=== PATIENT | male | born 1955 | race Caucasian/White ===

== ENCOUNTER 2025-06-20 17:14 | Inpatient (IN) ==
[2025-06-20 17:47] LABS: Hematocrit (blood only) 42.8 % (42.0-52.0); Hemoglobin 14.8 g/dL (14.0-18.0); Immature Granulocytes # (auto) 0.04 K/uL (0.01-0.20); Immature Granulocytes % (auto) 0.3 %; Mean Corpuscular Hemoglobin 30.5 pg (25.0-34.0); Mean Corpuscular Volume 88.2 fL (80.0-100.0); Platelet Count 182 K/uL (130-400); RDW Standard Deviation 44.5 fL (36.4-46.3); Red Blood Count 4.85 M/uL (4.70-6.10); White Blood Count 12.63 K/ul (4.8-10.8)
[2025-06-20 18:05] LABS: Alanine Aminotransferase 14.0 U/L (7-52); Albumin Globulin Ratio 1.6 (0.9-2); Albumin Level 4.3 gm/dl (3.4-5.0); Alkaline Phosphatase 91.0 U/L (34-104); Anion Gap 8.0 (3-11); Bilirubin,Total 0.8 mg/dl (0.2-1.0); Blood Urea Nitrogen 21.0 mg/dl (6-23); Calcium 9.3 mg/dl (8.6-10.3); Carbon Dioxide 25.0 mmol/L (21-32); Chloride 105.0 mmol/L (98-107); Creatinine Clr Calc Pharmacy 48.1 ml/min; Globulin 2.7 gm/dl (2.5-4.0); Glucose 138.0 mg/dl (70-99(Fasting)); Potassium 3.9 mmol/L (3.5-5.1); Sodium 138.0 mmol/L (136-145); Total Protein 7.0 gm/dl (6.0-8.3)
[2025-06-20 18:24] LABS: INR 1.0 (0.9-1.1); Partial Thromboplastin Time 30 Seconds (21-31); Prothrombin Time 10.5 Seconds (9.0-12.0)
--- NOTE | 2025-06-20 18:56 | Emergency Department Note ---
History of Present Illness General Chief complaint: Cardiac Assessment Stated complaint: CARDIAC ASSESSMENT Time Seen by Provider: 06/20/25 18:34 Source: patient Mode of arrival: ambulatory Limitations: no limitations History of Present Illness Maximum Pain Intensity: 2 Patient is a 69-year-old male with history of alcohol use disorder who presents for chest pain. He noticed some mild discomfort 3 days ago which resolved on its own. 2 nights ago however he started to develop more severe pain and discomfort that radiate across his entire chest into his arms. Lasted about 20 minutes and resolved on its own. He did feel anxious and short of breath when it occurred. No associated lightheadedness, dizziness, palp palpitations, nausea, vomiting. He has had indigestion in the past however this was more severe. He has been taking baby aspirin every day over the past 3 days. He denies any drug use. Last drink was at 19 9. He is an active smoker. Also has a history of kidney problems and diabetes. Allergies Allergy/AdvReac Type Severity Reaction Status Date / Time No Known Allergies Allergy Unverified 06/20/25 18:48 Past Med/Surg History Problem List (Updated 06/20/25 @ 19:27 by Lloyd Newton MD) Acute non-ST elevation myocardial infarction (NSTEMI) (Acute) Social History Smoking Status: Current every day smoker Tobacco Type: Cigarettes Preferred Language: Nepalese Feels Safe at Home: Yes Review of Systems Review of systems negative outside of positive findings mentioned in HPI. Physical Exam Vital Signs Vital Signs - 24 hr 06/20/25 17:16 06/20/25 18:36 06/20/25 18:49 Temperature 36.8 C Temperature Source Temporal Artery Scan Pulse Rate 69 63 58 L Respiratory Rate 18 16 Respiratory Effort / Characteristics Non-Labored Spontaneous Respiratory Depth Normal Blood Pressure 153/83 H Blood Pressure Mean 106 Pulse Oximetry 100 98 Oxygen Delivery Method Room Air Room Air Sepsis Recent Fever Within 48 Hours No Sepsis New/Unexplained Change in Mental Status No Sepsis Action Taken by Nursing No Action Required See below Constitutional WD/WN, vitals as above Respiratory normal respiratory effort, lungs clear to auscultation Cardiovascular RRR, no murmur, no edema Extremities: no calf tenderness, no pedal edema and no edema Gastrointestinal (Abdomen) normal bowel sounds, soft, nontender, no hepatosplenomegaly Course Administered Medications Discontinued Medications Aspirin (Aspirin Chew 324 Mg) 324 mg PO NOW STA Stop: 06/20/25 18:52 Last Admin: 06/20/25 19:24 Dose: 324 mg Documented By: taras Medical Decision Making Differential Diagnosis DDx includes but not limited to: NSTEMI, unstable angina, demand ischemia, myocarditis, pericarditis, cardiomyopathy, coronary artery spasm, GERD, esophageal spasm Medical Records Attestation: I reviewed the patient's medical records. Home Medications Current Medication List: was personally reviewed by me Laboratory Data Attestation: I reviewed the patient's lab results. 06/20/25 17:33 06/20/25 17:33 Lab Results 06/20/25 Range/Units 17:33 WBC 12.63 H (4.8-10.8) K/ul RBC 4.85 (4.70-6.10) M/uL Hgb 14.8 (14.0-18.0) g/dL Hct 42.8 (42.0-52.0) % MCV 88.2 (80.0-100.0) fL MCH 30.5 (25.0-34.0) pg MCHC 34.6 (32.0-36.0) g/dL RDW Std Deviation 44.5 (36.4-46.3) fL RDW Coeff of Misha 13.9 (11.5-14.5) % Plt Count 182 (130-400) K/uL MPV 9.1 L (9.4-12.4) fL Immature Gran % (Auto) 0.3 % Neut % (Auto) 77.6 % Lymph % (Auto) 13.2 % [place] % (Auto) 6.3 % Eos % (Auto) 2.0 % Baso % (Auto) 0.6 % Neut # (Auto) 9.79 H (1.40-6.50) K/uL Lymph # (Auto) 1.67 (1.20-3.40) K/uL [place] # (Auto) 0.80 H (0.11-0.59) K/uL Eos # (Auto) 0.25 (0.00-0.50) K/uL Baso # (Auto) 0.08 (0.00-0.20) K/uL Immature Gran # (Auto) 0.04 (0.01-0.20) K/uL PT 10.5 (9.0-12.0) Seconds INR 1.0 (0.9-1.1) APTT 30 (21-31) Seconds PTT Ratio 1.1 Sodium 138 (136-145) mmol/L Potassium 3.9 (3.5-5.1) mmol/L Chloride 105 (98-107) mmol/L Carbon Dioxide 25 (21-32) mmol/L Anion Gap 8 (3-11) BUN 21 (6-23) mg/dl Creatinine 1.59 H (0.6-1.4) mg/dl Est Cr Clr Drug Dosing 48.1 ml/min eGFR 46.70 BUN/Creatinine Ratio 13.2 (10-20) Glucose 138 H (70-99(Fasting)) mg/dl Calcium 9.3 (8.6-10.3) mg/dl Total Bilirubin 0.8 (0.2-1.0) mg/dl AST 19 (13-39) U/L ALT 14 (7-52) U/L Alkaline Phosphatase 91 (34-104) U/L Troponin I High Sens 339.9 H* (0-20) pg/ml Total Protein 7.0 (6.0-8.3) gm/dl Albumin 4.3 (3.4-5.0) gm/dl Globulin 2.7 (2.5-4.0) gm/dl Albumin/Globulin Ratio 1.6 (0.9-2) Imaging Data Attestation: I personally reviewed and interpreted this imaging study as follows: My Impression: No acute cardiopulmonary process noted ECG Data Attestation: I personally reviewed and interpreted this ECG as follows: Indication: + chest pain Rate (beats per minute): 62 Rhythm: + sinus rhythm ECG Intervals/blocks: + Normal QRS, + Normal QT and + Normal MI ECG ST segments: + T-wave inversions (III) ECG Findings: + LVH Comparison ECG Date: no prior available Blood Pressure Blood Pressure Findings: Elevated blood pressure Blood Pressure Disposition: elevated BP felt to be situational MDM Narrative Patient is a 69-year-old male who presents today for chest pain. Chest pain occurred 2 days prior and he is asymptomatic here in the ED. Description of chest pain was concerning for ACS. EKG reviewed and no evidence of STEMI or significant ST abnormalities noted. Initial troponin of 339. Clinical picture concerning for NSTEMI. Heparin initiated here in the ED. 324 of aspirin as well as atorvastatin was given. Will admit to hospitalist service for further management of NSTEMI. Stable for admission to telemetry bed. Low concern for aortic dissection or PE Authorized and Performed by: Dr. Newton Total critical care time: Approximately 35 CC diagnosis: NSTEMI Due to a high probability of clinically significant, life threatening deterioration, the patient required my highest level of preparedness to intervene emergently and I personally spent this critical care time directly and personally managing the patient. This critical care time included obtaining a history; examining the patient; pulse oximetry; ordering and review of studies; arranging urgent treatment with development of a management plan; evaluation of patient's response to treatment; frequent reassessment; and, discussions with other providers. This critical care time was performed to assess and manage the high probability of imminent, life-threatening deterioration that could result in multi-organ failure. It was exclusive of separately billable procedures and treating other patients and teaching time. Please see MDM section and the rest of the note for further information on patient assessment and treatment.. Impression & Plan Acute non-ST elevation myocardial infarction (NSTEMI) Discharge Plan Visit Data Chief Complaint: Cardiac Assessment Stated Complaint: CARDIAC ASSESSMENT ED Provider: Lloyd Newton Discharge Problem: Acute non-ST elevation myocardial infarction (NSTEMI) Patient Disposition: Admitted As Inpatient Condition: Good Forms Stand Alone Forms: My [facility] Referrals Referrals: PCP,NO [Physician] -
[2025-06-20] MEDS: ASPIRIN CHEW 324 MG PO STA (19:24)
[2025-06-20] MEDS: HEPARIN SOD (PORCINE) 1000 UNIT/ML IV ONE (19:32)
[2025-06-20] MEDS: HEPARIN 25000 UNIT/500 ML D5W 25,000 UNITS/500 ML BAG IV SCH (19:33)
--- NOTE | 2025-06-20 19:42 | XRay Report ---
Single frontal view of the chest No comparison Impression No acute pulmonary pathology Electronically signed by Jaime Deras 06-20-2025 7:42 PM
[2025-06-20] MEDS: Heparin IV Adult Wt-Based Standard w/ INITIAL Bolus Protocol IV STA (20:24)
[2025-06-20] MEDS: ATORVASTATIN 40 MG TAB PO SCH (20:46)
--- NOTE | 2025-06-20 20:50 | History & Physical Report ---
Date of Service June 20, 2025 Assessment & Plan (1) Acute non-ST elevation myocardial infarction (NSTEMI): Plan: 69-year-old male unassigned patient who goes to [facility] with past medical history significant for hypertension, hyperlipidemia, BPH, chronic headaches, depression and anxiety and ongoing tobacco abuse presents with chest pain. Couple of nights ago patient experienced chest tightness radiating to both arms initially and later the pain was located in the middle of the chest which lasted for about 20 minutes. When he checked his blood pressure was very high at that time. He took aspirin and took his blood pressure medication and also took a lot of Pepto-Bismol. Pain subsided over 20 minutes. Since then he did not had any more pains. The day before chest pain he felt some pain in his back with stiffness. When he climbs steps he feels short of breath. Says he has chronic headaches. During the episode no profuse sweating. He felt dizzy during the episode. No nausea. Has chronic cough from smoking. Chronic sinus drainage. Has chronic left ear discomfort. Chronic abdominal discomfort. He has alternating diarrhea and constipation. Last couple of days having black stools probably from his Pepto-Bismol. Micturating okay. Denies any rash. Currently no chest pain. Currently resting comfortably and hemodynamically stable.States cannot ambulate much because of chronic back pain radiating down his left leg Non-ST elevated [place] Had chest pain couple of nights ago Currently asymptomatic EKG no acute findings Initial troponin 339 and repeat 353 Got aspirin and started on IV heparin in the ER Will continue IV heparin, aspirin 81 mg daily, increase Lipitor to 80 mg Close monitoring telemetry N.p.o. Serial cardiac enzymes and echocardiogram Consult cardiology for further recommendations History of hypertension On propranolol Medication adjustments as per cardiology Hyperlipidemia Increased Lipitor to 80 mg daily BPH On Flomax Depression anxiety On venlafaxine xanax prn Chronic kidney disease Patient does not know his baseline creatinine Creatinine 1.5 today Can get records from [facility] DM recently started on Jardiance as per patient will follow hba1c levels ISS for now Blck stool possibly from Pepto Bismol hb ok will check stool for Hemoccult Chronic back pain needs followup DVT prophylaxis IV heparin Disposition Telemetry Full code. History of Present Illness Chief Complaint: Chest pain Primary Care Provider: MAYELA Christopher 69-year-old male unassigned patient who goes to [facility] with past medical history significant for hypertension, hyperlipidemia, BPH, chronic headaches, depression and anxiety and ongoing tobacco abuse presents with chest pain. Couple of nights ago patient experienced chest tightness radiating to both arms initially and later the pain was located in the middle of the chest which lasted for about 20 minutes. When he checked his blood pressure was very high at that time. He took aspirin and took his blood pressure medication and also took a lot of Pepto-Bismol. Pain subsided over 20 minutes. Since then he did not had any more pains. The day before chest pain he felt some pain in his back with stiffness. When he climbs steps he feels short of breath. Says he has chronic headaches. During the episode no profuse sweating. He felt dizzy during the episode. No nausea. Has chronic cough from smoking. Chronic sinus drainage. Has chronic left ear discomfort. Chronic abdominal discomfort. He has alternating diarrhea and constipation. Last couple of days having black stools probably from his Pepto-Bismol. Micturating okay. Denies any rash. Currently no chest pain. Currently resting comfortably and hemodynamically stable.States cannot ambulate much because of chronic back pain radiating down his left leg Past medical history. As mentioned above. Past surgical history. Dental surgery. Tonsillectomy. Social history. Smokes 1 pack of cigarettes daily for last 50 years. Quit drinking alcohol in 1988. Family history. Patient states he is adopted. His father in his 30s. No other significant history in the family as per patient. Allergies Allergy/AdvReac Type Severity Reaction Status Date / Time No Known Allergies Allergy Unverified 06/20/25 18:48 Home Medications Medication Instructions Recorded Confirmed Type alprazolam 0.25 mg tablet (Xanax) 0.25 mg PO TID PRN Anxiety 06/20/25 06/20/25 History atorvastatin 40 mg tablet 20 mg PO DAILY 06/20/25 06/20/25 History cetirizine 10 mg tablet 10 mg PO DAILY 06/20/25 06/20/25 History magnesium oxide 420 mg tablet 420 mg PO DAILY 06/20/25 06/20/25 History propranolol 120 mg capsule,24 120 mg PO DAILY 06/20/25 06/20/25 History hr,extended release tamsulosin 0.4 mg capsule 0.4 mg PO DAILY 06/20/25 06/20/25 History topiramate 50 mg tablet 50 mg PO DAILY PRN Headache 06/20/25 06/20/25 History venlafaxine 150 mg 150 mg PO DAILY 06/20/25 06/20/25 History capsule,extended release 24 hr Past Med/Surg History Problem List (Updated 06/20/25 @ 19:27 by Lloyd Newton MD) Acute non-ST elevation myocardial infarction (NSTEMI) (Acute) Social History Smoking Status: Current every day smoker Tobacco Type: Cigarettes Cigarettes Per Day: 20-30; Second Hand Exposure: No; Do You Dip or Chew Tobacco: No; Tobacco Cessation Education Requested by Patient: No Hx Alcohol Use: No Hx Substance Use: No Preferred Language: Martiniquais Communication Ability: Effective [employer] Required: No Beliefs That Will Affect Care: None Current Living Situation: Alone Current Living Situation Comment: alone Other Information That Helps Us Care for You: No Feels Safe at Home: Yes Safety Concerns: Feels Safe At This Time Assistive Devices: Denture - Upper, Denture - Lower and Glasses Review of Systems Review of Systems: All systems reviewed & are unremarkable except as noted in HPI & below Physical Exam Physical Exam: General- Not in acute distress Head- atraumatic Eyes- PERRL. ENT- oropharynx clear Neck- supple, no JVD. Lungs- clear to auscultation no wheezing or crackles Heart- regular rhythm; no murmur, no gallop. Abdomen- normal bowel sounds, soft, nontender, no distension. Extremities- no pretibial edema, no erythema seen Neuro- alert, oriented x 3; PERRL, no facial palsy; no dysarthria; moves extremities Results & Data Results & Data Vital Signs (Past 12 Hours) Vital Signs Temp Pulse Pulse Resp BP BP Pulse Ox 06/20/25 20:00 60 20 132/91 98 06/20/25 18:49 58 L 16 98 06/20/25 18:36 63 06/20/25 18:00 60 16 173/99 H 99 06/20/25 17:16 36.8 C 69 18 153/83 H 100 O2 Del Method 06/20/25 20:00 Room Air 06/20/25 18:49 Room Air 06/20/25 18:36 06/20/25 18:00 Room Air 06/20/25 17:16 Room Air Diagnostic Findings Laboratory Results WBC 12.63 K/ul (4.8-10.8) H 06/20/25 17:33 RBC 4.85 M/uL (4.70-6.10) 06/20/25 17:33 Hgb 14.8 g/dL (14.0-18.0) 06/20/25 17:33 Hct 42.8 % (42.0-52.0) 06/20/25 17:33 MCV 88.2 fL (80.0-100.0) 06/20/25 17: MCH 30.5 pg (25.0-34.0) 06/20/25 17: MCHC 34.6 g/dL (32.0-36.0) 06/20/25 17:33 RDW Std Deviation 44.5 fL (36.4-46.3) 06/20/25 17: RDW Coeff of Misha 13.9 % (11.5-14.5) 06/20/25 17: Plt Count 182 K/uL (130-400) 06/20/25 17: MPV 9.1 fL (9.4-12.4) L 06/20/25 17:33 Immature Gran % (Auto) 0.3 % 06/20/25 17: Neut % (Auto) 77.6 % 06/20/25 17:33 Lymph % (Auto) 13.2 % 06/20/25 17:33 [place] % (Auto) 6.3 % 06/20/25 17:33 Eos % (Auto) 2.0 % 06/20/25 17:33 Baso % (Auto) 0.6 % 06/20/25 17:33 Neut # (Auto) 9.79 K/uL (1.40-6.50) H 06/20/25 17:33 Lymph # (Auto) 1.67 K/uL (1.20-3.40) 06/20/25 17:33 [place]omew # (Auto) 0.80 K/uL (0.11-0.59) H 06/20/25 17:33 Eos # (Auto) 0.25 K/uL (0.00-0.50) 06/20/25 17: Baso # (Auto) 0.08 K/uL (0.00-0.20) 06/20/25 17:33 Immature Gran # (Auto) 0.04 K/uL (0.01-0.20) 06/20/25 17:33 PT 10.5 Seconds (9.0-12.0) 06/20/25 17:33 INR 1.0 (0.9-1.1) 06/20/25 17:33 APTT 30 Seconds (21-31) 06/20/25 17:33 PTT Ratio 1.1 06/20/25 17:33 Sodium 138 mmol/L (136-145) 06/20/25 17:33 Potassium 3.9 mmol/L (3.5-5.1) 06/20/25 17:33 Chloride 105 mmol/L (98-107) 06/20/25 17:33 Carbon Dioxide 25 mmol/L (21-32) 06/20/25 17:33 Anion Gap 8 (3-11) 06/20/25 17:33 BUN 21 mg/dl (6-23) 06/20/25 17:33 Creatinine 1.59 mg/dl (0.6-1.4) H 06/20/25 17:33 Est Cr Clr Drug Dosing 48.1 ml/min 06/20/25 17:33 eGFR 46.70 06/20/25 17:33 BUN/Creatinine Ratio 13.2 (10-20) 06/20/25 17:33 Glucose 138 mg/dl (70-99(Fasting)) H 06/20/25 17:33 Calcium 9.3 mg/dl (8.6-10.3) 06/20/25 17:33 Total Bilirubin 0.8 mg/dl (0.2-1.0) 06/20/25 17:33 AST 19 U/L (13-39) 06/20/25 17:33 ALT 14 U/L (7-52) 06/20/25 17:33 Alkaline Phosphatase 91 U/L (34-104) 06/20/25 17:33 Troponin I High Sens 353.0 pg/ml (0-20) H* 06/20/25 19:26 Total Protein 7.0 gm/dl (6.0-8.3) 06/20/25 17:33 Albumin 4.3 gm/dl (3.4-5.0) 06/20/25 17:33 Globulin 2.7 gm/dl (2.5-4.0) 06/20/25 17:33 Albumin/Globulin Ratio 1.6 (0.9-2) 06/20/25 17:33 Impressions Chest X-Ray 06/20/25 17:25 Single frontal view of the chest No comparison Impression No acute pulmonary pathology Electronically signed by Jaime Deras 06-20-2025 7:42 PM ECG Additional Comments: ECG. Normal sinus rhythm rate of 62. Minimal criteria for LVH. QTc 442 Code Status & VTE Plan VTE Prophylaxis Plan VTE Prophylaxis will be ordered: Yes
[2025-06-20] MEDS ORDERED: INFLUENZA VACC TS2025-26(65y+)/PF (IIV3) 0.5mL Syr IM ONE (22:09)
[2025-06-20] MEDS ORDERED: GLUCAGON FOR INJ 1 MG VIAL SQ PRN (22:21)
[2025-06-20] MEDS ORDERED: GLUCOSE 40% GEL 15 GM TUBE PO PRN (22:21)
[2025-06-20] MEDS ORDERED: POLYETHYLENE (MIRALAX) 17 GM PACK PO PRN (22:21)
[2025-06-20] MEDS ORDERED: CARBOHYDRATES FOR HYPOGLYCEMIA PO PRN (22:21)
[2025-06-20] MEDS ORDERED: MoRPHine SULFATE 2 MG/ML CARP IV PRN (22:21)
[2025-06-20] MEDS ORDERED: GLUCOSE 10 TAB/TUBE PO PRN (22:21)
[2025-06-20] MEDS ORDERED: DEXTROSE 50% 50 ML SYRINGE IV PRN (22:21)
[2025-06-20] MEDS: TOPIRAMATE 50 MG TAB PO PRN (23:56)
[2025-06-21] MEDS: INSULIN ASPART PER UNIT CHARGE SC SCH ×2 (00:25→17:56)
[2025-06-21 02:31] LABS: Hematocrit (blood only) 38.9 % (42.0-52.0); Hemoglobin 13.8 g/dL (14.0-18.0); Immature Granulocytes # (auto) 0.03 K/uL (0.01-0.20); Immature Granulocytes % (auto) 0.3 %; Mean Corpuscular Hemoglobin 30.8 pg (25.0-34.0); Mean Corpuscular Volume 86.8 fL (80.0-100.0); Platelet Count 170 K/uL (130-400); RDW Standard Deviation 44.1 fL (36.4-46.3); Red Blood Count 4.48 M/uL (4.70-6.10); White Blood Count 10.33 K/ul (4.8-10.8)
[2025-06-21 02:46] LABS: Anion Gap 8.0 (3-11); Blood Urea Nitrogen 20.0 mg/dl (6-23); Calcium 8.6 mg/dl (8.6-10.3); Carbon Dioxide 23.0 mmol/L (21-32); Chloride 108.0 mmol/L (98-107); Creatinine Clr Calc Pharmacy 55.0 ml/min; Glucose 110.0 mg/dl (70-99(Fasting)); Magnesium 2.4 mg/dl (1.7-2.4); Potassium 3.4 mmol/L (3.5-5.1); Sodium 139.0 mmol/L (136-145)
[2025-06-21 03:03] LABS: ANTI-Xa, UFH(UnfractionatedHep 1.10 IU/ml (0.3-0.7)
[2025-06-21 03:29] LABS: Cholesterol 94.0 mg/dl (0-200); HDL Cholesterol 29.0 mg/dl; Triglycerides 65.0 mg/dl (0-150)
[2025-06-21 06:02] LABS: ANTI-Xa, UFH(UnfractionatedHep 0.53 IU/ml (0.3-0.7)
[2025-06-21] MEDS: ASPIRIN 81 MG ECTAB PO SCH (07:49)
[2025-06-21] MEDS: MAGNESIUM OXIDE 400 MG TAB PO SCH (07:49)
[2025-06-21] MEDS: CETIRIZINE HCL 10 MG TABLET PO SCH (07:50)
[2025-06-21] MEDS: VENLAFAXINE HCL XR 150 MG CAPXR PO SCH (07:50)
[2025-06-21] MEDS: TAMSULOSIN HCL 0.4 MG CAP PO SCH (07:50)
[2025-06-21] MEDS: PROPRANOLOL HCL 60 MG LA CAP PO SCH (07:50)
[2025-06-21 08:36] LABS: Hemoglobin A1C 6.2 % (4.5-5.6)
[2025-06-21] MEDS: POTASSIUM CHLORIDE CRTAB 20 MEQ TABCR PO STA (08:42)
[2025-06-21] MEDS ORDERED: TOPIRAMATE 50 MG TAB PO SCH (09:00)
--- NOTE | 2025-06-21 09:06 | Cardiology Consultation ---
Date of Consultation June 21, 2025 Assessment & Plan (1) Acute non-ST elevation myocardial infarction (NSTEMI): (2) Chest pain: (3) Hypertension: (4) Dyslipidemia: Plan Assessment: 69 year old male with PMHx significant for HTN, HLD and family history of premature CAD that presented to the ER with complaints of chest pain radiating to bilateral arms and back for several hours. Little to no relief with ASA, current anti-hypertensives and Pepto-bismol. EKG with no acute ST elevation, but T wave inversion in inferior leads. Troponin with modest elevation, peaked and now trending down. Cardiology consulted for further evaluation. Plan: 1. NSTEMI 2. Chest pain 3. HTN 4. Dyslipidemia -Patient now chest pain free, currently on heparin gtt -Blood pressure controlled -Troponin with modest elevation, peaked and now trending down -Telemetry with no acute events overnight. -patient does not follow with a mailing machine assistant and denies any prior heart events. He does carry multiple risk factors including HTN, HLD, prior alcholol and tobacco use, family history of biological father in his 30's suspected s/t to coronary disease and recent symptoms as outlined in HPI -Obtain resting echocardiogram to assess overall structure and function. -Allow for patient to have a cardiac diet. -Continue to monitor closely on telemetry. -Continue Heparin gtt, Atorvastatin, ASA 81mg, Propranolol as per current regimen. -Pending echocardiogram results will further discuss case with Dr. Gooden for consideration of further ischemic evaluation. Case has been discussed with Dr. Gooden. Further recommendations regarding plan of care as per his assessment. I spent a total of 50 minutes on the date of service in preparation, delivery, documentation of the care provided to the patient excluding any time spent in the performance of separately billed services. MAYELA Brock [facility] Cardiology [facility] Supervising Physician Co-Signing Physician Notes I have reviewed the advanced practitioner's documentation on the date of service referenced in note, and I agree with, and take responsibility for the plan of care. I spent a total of [30] minutes coordinating, documenting, and providing care for this patient excluding time spent in the performance of separately billed services or time spent by another provider. 69-year-old male with known history hypertension dyslipidemia and family history of premature coronary artery disease presents with chest pain elevated troponins peak of 453 Echocardiogram shows normal ejection fraction with mild hypokinesis of the inferior wall Patient had an episode of chest pain today afternoon. Repeat EKG at that time showed ST-T wave changes in inferior leads Chest pain has resolved now Will start Imdur for angina Plan for cardiac cath on Monday however if recurrent chest pain which is worsening or persistent might need to have earlier intervention before Monday History of Present Illness Reason for Consultation: NSTEMI Requesting Physician: [facility] hospitalist Attending Physician: Lesley Mariscal MD History of Present Illness HPI: Patient is a 69 year old male with PMHx significant for HTN, HLD, BPH, chronic headaches, depression/anxiety and tobacco use that presented to the ER with acute complaints of chest pain. Patient states that the chest pain started a few nights prior to presenting described as a tightness mid-sternal radiating into both arms and also into his back lasting about 20 minutes. He endorsed some associated dizziness with the episode. He checked his blood pressure which was "very high" at that time. He opted to take an ASA, his BP medication and some pepto-bismol. Patient states that over the course of the past months he has been having dyspnea with exertion such as climbing stairs, but no chest pain until this event. He did endorse some increasing GERD symptoms over the past several months especially when attempting to eat causing him to question if "maybe I have a hiatal hernia". Upon examination today he is resting comfortably in bed. Reports that his chest pain has subsided and no recurrence overnight. He is currently on a heparin gtt. EKG on admission NSR rate 62bpm. QTC 442ms High sensitivity troponin 339.9/353.0/415.4/360.4 Chest xray negative Review of telemetry shows sinus bradycardia/Sinus rhythm Rates 50-60's with occasional PVC's. Echocardiogram pending Allergies Allergy/AdvReac Type Severity Reaction Status Date / Time No Known Allergies Allergy Unverified 06/20/25 18:48 Home Medications Medication Instructions Recorded Confirmed Type alprazolam 0.25 mg tablet (Xanax) 0.25 mg PO TID PRN Anxiety 06/20/25 06/20/25 History atorvastatin 40 mg tablet 20 mg PO DAILY 06/20/25 06/20/25 History cetirizine 10 mg tablet 10 mg PO DAILY 06/20/25 06/20/25 History magnesium oxide 420 mg tablet 420 mg PO DAILY 06/20/25 06/20/25 History propranolol 120 mg capsule,24 120 mg PO DAILY 06/20/25 06/20/25 History hr,extended release tamsulosin 0.4 mg capsule 0.4 mg PO DAILY 06/20/25 06/20/25 History topiramate 50 mg tablet 50 mg PO BID Headache 06/20/25 06/21/25 History venlafaxine 150 mg 300 mg PO DAILY 06/20/25 06/21/25 History capsule,extended release 24 hr empagliflozin 25 mg tablet 12.5 mg PO DAILY 06/21/25 06/21/25 History fluticasone propionate 50 2 spray intranasal DAILY 06/21/25 06/21/25 History mcg/actuation nasal spray,suspension losartan 50 mg tablet 50 mg PO DAILY 06/21/25 06/21/25 History pantoprazole 40 mg tablet,delayed 40 mg PO DAILY 06/21/25 06/21/25 History release Patient History Social History Smoking Status: Current every day smoker Tobacco Type: Cigarettes Cigarettes Per Day: 20-30; Second Hand Exposure: No; Do You Dip or Chew Tobacco: No; Tobacco Cessation Education Requested by Patient: No Hx Alcohol Use: No Hx Substance Use: No Preferred Language: American Communication Ability: Effective Children'S Program Coordinator Required: No Beliefs That Will Affect Care: None Current Living Situation: Alone Current Living Situation Comment: alone Other Information That Helps Us Care for You: No Feels Safe at Home: Yes Safety Concerns: Feels Safe At This Time Assistive Devices: Denture - Upper, Denture - Lower and Glasses Review of Systems Review of Systems: All systems reviewed & are unremarkable except as noted in HPI & below Physical Exam Constitutional: well developed, well nourished and + ill appearing; no acute distress Neck: normal visual inspection and trachea midline Respiratory: normal respiratory effort, lungs clear to auscultation Cardiovascular: RRR, no murmur, no edema Heart Sounds: normal S1 and normal S2 Vessels: dorsalis pedis pulses present and radial pulses present; no JVD Extremities: no edema Skin: no rashes, warm and dry Psychiatric: A+Ox3, euthymic affect Results & Data Vital Signs (Past 12 Hours) Vital Signs Temp Pulse Pulse Resp BP BP Pulse Ox 06/21/25 07:42 36.7 C 57 L 18 144/83 H 95 06/21/25 05:00 53 L 06/21/25 03:25 36.4 C L 56 L 18 149/81 H 96 06/20/25 23:27 36.5 C 60 18 146/73 H 98 06/20/25 22:48 59 L 06/20/25 22:35 06/20/25 22:24 06/20/25 22:21 63 06/20/25 22:21 06/20/25 22:10 36.4 C L 61 18 151/92 H 98 06/20/25 21:42 58 L 20 158/71 H 98 O2 Del Method O2 Del Method 06/21/25 07:42 Room Air 06/21/25 05:00 06/21/25 03:25 Room Air 06/20/25 23:27 Room Air 06/20/25 22:48 06/20/25 22:35 Room Air 06/20/25 22:24 Room Air 06/20/25 22:21 06/20/25 22:21 Room Air 06/20/25 22:10 Room Air 06/20/25 21:42 Room Air Laboratory Results Cardiac Enzymes 06/20/25 06/20/25 06/21/25 Range/Units 17:33 19:26 01:57 AST 19 (13-39) U/L Troponin I High Sens 339.9 H* 353.0 H* 415.4 H* (0-20) pg/ml 06/21/25 Range/Units 11:47 AST (13-39) U/L Troponin I High Sens 360.4 H* (0-20) pg/ml Coagulation 06/20/25 Range/Units 17:33 PT 10.5 (9.0-12.0) Seconds APTT 30 (21-31) Seconds Lipids 06/21/25 Range/Units 01:57 Triglycerides 65 (0-150) mg/dl Cholesterol 94 (0-200) mg/dl HDL Cholesterol 29 mg/dl Cholesterol/HDL Ratio 3.2 (0-5) CBC 06/20/25 06/21/25 Range/Units 17:33 01:57 WBC 12.63 H 10.33 (4.8-10.8) K/ul RBC 4.85 4.48 L (4.70-6.10) M/uL Hgb 14.8 13.8 L (14.0-18.0) g/dL Hct 42.8 38.9 L (42.0-52.0) % Plt Count 182 170 (130-400) K/uL Neut # (Auto) 9.79 H 6.25 (1.40-6.50) K/uL Lymph # (Auto) 1.67 2.54 (1.20-3.40) K/uL Power # (Auto) 0.80 H 1.12 H (0.11-0.59) K/uL Eos # (Auto) 0.25 0.31 (0.00-0.50) K/uL Baso # (Auto) 0.08 0.08 (0.00-0.20) K/uL Comprehensive Metabolic Panel 06/20/25 06/21/25 Range/Units 17:33 01:57 Sodium 138 139 (136-145) mmol/L Potassium 3.9 3.4 L (3.5-5.1) mmol/L Chloride 105 108 H (98-107) mmol/L Carbon Dioxide 25 23 (21-32) mmol/L BUN 21 20 (6-23) mg/dl Creatinine 1.59 H 1.35 (0.6-1.4) mg/dl Glucose 138 H 110 H (70-99(Fasting)) mg/dl Calcium 9.3 8.6 (8.6-10.3) mg/dl AST 19 (13-39) U/L ALT 14 (7-52) U/L Alkaline Phosphatase 91 (34-104) U/L Total Protein 7.0 (6.0-8.3) gm/dl Albumin 4.3 (3.4-5.0) gm/dl Intake and Output 06/20/25 06/21/25 06/21/25 22:59 06:59 14:59 Intake Total 219.433 / 219.433 21.35 / 21.35 Balance 219.433 / 219.433 21.35 / 21.35 Intake: IV 219.433 / 219.433 21.35 / 21.35 Heparin 84014 Unit/500 ml D5w 219.433 / 219.433 21.35 / 21.35 25,000 units In 500 ml @ 1,450 UNITS/HR 29 mls/hr IV .[id number] JONEL Rx#:[id number] Oral 0 / 0 Other: # Unmeasured Voids 1 Weight 84 kg 84.2 kg Weight Measurement Method [facility] Care Time/CCT Total # of Minutes Spent Total Time Spent with Patient: Total time spent is greater than 50% in coordination of care (as documented) at patient's floor/unit and/or counseling patient: Coding Level of Care Code 80621 IN/OBS CONSULT LVL 5,80M Diagnoses Acute non-ST elevation myocardial infarction (NSTEMI) I21.4 Chest pain R07.9 Hypertension I10 Dyslipidemia E78.5 Time Spent (min) 50
--- NOTE | 2025-06-21 09:42 | Electrocardiogram Report ---
Test Reason : Blood Pressure : */* mmHG Vent. Rate : 62 BPM Atrial Rate : 62 BPM P-R Int : 160 ms QRS Dur : 84 ms QT Int : 436 ms P-R-T Axes : 13 29 13 degrees QTcB Int : 442 ms Normal sinus rhythm Minimal voltage criteria for LVH, may be normal variant Borderline ECG No previous ECGs available Confirmed by Juanjo Denney ([id number]) on 06/21/2025 9:42:01 AM Referred By: REFERRED SELF Confirmed By: Juanjo Denney
[2025-06-21 12:28] LABS: ANTI-Xa, UFH(UnfractionatedHep 0.40 IU/ml (0.3-0.7)
--- NOTE | 2025-06-21 12:32 | Hospitalist Progress Note ---
Date of Service June 21, 2025 Assessment & Plan (1) Acute non-ST elevation myocardial infarction (NSTEMI): Plan: 69-year-old man who goes to [facility] with past medical history significant for hypertension, hyperlipidemia, BPH, chronic headaches, depression and anxiety and ongoing tobacco abuse presents with chest pain started a few nights ago radiating to both arms initially and later the pain was located in the middle of the chest which lasted for about 20 minutes and elevated BP. Non-ST elevated OR Currently asymptomatic EKG noted TWI in III Initial troponin 339-> 353->415->360 Got aspirin and started on IV heparin in the ER Continue IV heparin, aspirin 81 mg daily, Continue Atorvastatin 80 mg TTE today noted EF 55-60%, mild hypokinesis of basal inferoseptal wall and inferior wall, mild MR Awaiting Certified Hearing Instrument Dispenser eval. Possible cardiac cath on Monday History of hypertension On propranolol Med list obtained from [place] showed patient was on losartan 50mg daily at home. Resumed Hyperlipidemia Atorvastatin was increased to 80 mg daily on admission BPH On Flomax Depression/anxiety Updated med list which showed he was on Venlafaxine 300mg daily, not 150mg xanax prn Discussed with RN to have psych liason see patient Possible Chronic kidney disease Patient does not know his baseline creatinine Cr of 1.59 on admission Cr is 1.35 today. Monitor DM Recently started on Jardiance as per patient. Holding for now as patient may need procedure HbA1c 6.2 ISS for now Chronic back pain DVT prophylaxis - IV heparin Full code. I spent a total of 55 minutes coordinating, documenting and providing care for this patient excluding time spent in performance of separately billed services Admission and Anticipated Discharge Date Admission Date: June 20, 2025 Subjective Patient seen and examined Presented with chest pain radiating to both arms , associated with dizziness and feeling some SOB Reports depression but denied SI/HI No chest pain at this time No other complaints at this time Physical Exam Constitutional: + well hydrated; no acute distress Eyes: PERRL, conjunctivae normal, anicteric sclerae ENMT: external ear and nose normal, oropharynx normal Respiratory: normal respiratory effort, lungs clear to auscultation Cardiovascular: Rate/Rhythm: regular rhythm and + bradycardic Gastrointestinal (Abdomen): normal bowel sounds, soft, nontender, no hepatosplenomegaly Musculoskeletal: No pedal edema Neurologic: PERRL, EOMI, accommodation nl, no face palsy, no dysarthria Psychiatric: A+Ox3, euthymic affect Results & Data Results & Data Vital Signs (Past 12 Hours) Vital Signs Temp Pulse Pulse Resp BP Pulse Ox O2 Del Method 06/21/25 11:13 36.6 C 55 L 18 114/67 94 Room Air 06/21/25 07:42 36.7 C 57 L 18 144/83 H 95 Room Air 06/21/25 05:00 53 L 06/21/25 03:25 36.4 C L 56 L 18 149/81 H 96 Room Air Laboratory Results Abnormal lab results 06/20/25 06/20/25 06/20/25 Range/Units 17:33 19:26 23:15 WBC 12.63 H (4.8-10.8) K/ul RBC (4.70-6.10) M/uL Hgb (14.0-18.0) g/dL Hct (42.0-52.0) % MPV 9.1 L (9.4-12.4) fL Neut # (Auto) 9.79 H (1.40-6.50) K/uL Cobb # (Auto) 0.80 H (0.11-0.59) K/uL Heparin Anti-Xa, Unfract (0.3-0.7) IU/ml Potassium (3.5-5.1) mmol/L Chloride (98-107) mmol/L Creatinine 1.59 H (0.6-1.4) mg/dl Glucose 138 H (70-99(Fasting)) mg/dl POC Glucose 186 H (70-99) mg/dl Hemoglobin A1c (4.5-5.6) % Troponin I High Sens 339.9 H* 353.0 H* (0-20) pg/ml 06/21/25 06/21/25 06/21/25 Range/Units 01:57 11:47 12:00 WBC (4.8-10.8) K/ul RBC 4.48 L (4.70-6.10) M/uL Hgb 13.8 L (14.0-18.0) g/dL Hct 38.9 L (42.0-52.0) % MPV 9.2 L (9.4-12.4) fL Neut # (Auto) (1.40-6.50) K/uL Cobb # (Auto) 1.12 H (0.11-0.59) K/uL Heparin Anti-Xa, Unfract 1.10 H* (0.3-0.7) IU/ml Potassium 3.4 L (3.5-5.1) mmol/L Chloride 108 H (98-107) mmol/L Creatinine (0.6-1.4) mg/dl Glucose 110 H (70-99(Fasting)) mg/dl POC Glucose 100 H (70-99) mg/dl Hemoglobin A1c 6.2 H (4.5-5.6) % Troponin I High Sens 415.4 H* 360.4 H* (0-20) pg/ml
[2025-06-21] MEDS ORDERED: Nursing to Pharmacy Communication SCH (13:00)
--- NOTE | 2025-06-21 15:18 | XCELERA ---
[id number]
[2025-06-21] MEDS: ACETAMINOPHEN 325 MG TAB PO PRN (18:06)
[2025-06-21] MEDS: LOSARTAN POTASSIUM 50 MG TAB PO ONE (18:07)
[2025-06-21] MEDS: ISOSORBIDE MONO EXTENDED REL 30 MG TABCR PO ONE (18:08)
[2025-06-21] MEDS: TOPIRAMATE 50 MG TAB PO SCH (20:07)
[2025-06-21] MEDS: NITROGLYCERIN SL 0.4 MG/TAB TAB SL PRN (21:30)
[2025-06-22 06:07] LABS: Hematocrit (blood only) 37.9 % (42.0-52.0); Hemoglobin 12.7 g/dL (14.0-18.0); Mean Corpuscular Hemoglobin 30.0 pg (25.0-34.0); Mean Corpuscular Volume 89.4 fL (80.0-100.0); Platelet Count 152 K/uL (130-400); RDW Standard Deviation 45.8 fL (36.4-46.3); Red Blood Count 4.24 M/uL (4.70-6.10); White Blood Count 8.83 K/ul (4.8-10.8)
[2025-06-22 06:21] LABS: Anion Gap 10.0 (3-11); Blood Urea Nitrogen 20.0 mg/dl (6-23); Calcium 8.6 mg/dl (8.6-10.3); Carbon Dioxide 21.0 mmol/L (21-32); Chloride 108.0 mmol/L (98-107); Creatinine Clr Calc Pharmacy 51.6 ml/min; Glucose 96.0 mg/dl (70-99(Fasting)); Magnesium 2.4 mg/dl (1.7-2.4); Potassium 3.6 mmol/L (3.5-5.1); Sodium 139.0 mmol/L (136-145)
[2025-06-22 06:36] LABS: ANTI-Xa, UFH(UnfractionatedHep 0.40 IU/ml (0.3-0.7)
[2025-06-22] MEDS: VENLAFAXINE HCL XR 150 MG CAPXR PO SCH (08:58)
[2025-06-22] MEDS: LOSARTAN POTASSIUM 50 MG TAB PO SCH (09:00)
--- NOTE | 2025-06-22 09:35 | Electrocardiogram Report ---
Test Reason : Blood Pressure : */* mmHG Vent. Rate : 54 BPM Atrial Rate : 54 BPM P-R Int : 174 ms QRS Dur : 90 ms QT Int : 466 ms P-R-T Axes : 66 32 -53 degrees QTcB Int : 441 ms Sinus bradycardia T wave abnormality, consider inferior ischemia Abnormal ECG When compared with ECG of 20-Jun-2025 17:27, Inverted T waves have replaced nonspecific T wave abnormality in Inferior leads Confirmed by Juanjo Denney ([id number]) on 06/22/2025 9:34:32 AM Referred By: REFERRED SELF Confirmed By: Juanjo Denney
--- NOTE | 2025-06-22 09:41 | Electrocardiogram Report ---
Test Reason : Blood Pressure : */* mmHG Vent. Rate : 54 BPM Atrial Rate : 54 BPM P-R Int : 184 ms QRS Dur : 92 ms QT Int : 456 ms P-R-T Axes : -7 17 26 degrees QTcB Int : 432 ms Sinus bradycardia Minimal voltage criteria for LVH, may be normal variant Abnormal ECG When compared with ECG of 21-Jun-2025 15:32, (unconfirmed) No significant change was found Confirmed by Juanjo Denney ([id number]) on 06/22/2025 9:41:07 AM Referred By: REFERRED SELF Confirmed By: Juanjo Denney
--- NOTE | 2025-06-22 09:41 | Electrocardiogram Report ---
Test Reason : Blood Pressure : */* mmHG Vent. Rate : 57 BPM Atrial Rate : 57 BPM P-R Int : 178 ms QRS Dur : 92 ms QT Int : 446 ms P-R-T Axes : 10 18 20 degrees QTcB Int : 434 ms Sinus bradycardia Minimal voltage criteria for LVH, may be normal variant Abnormal ECG When compared with ECG of 21-Jun-2025 05:02, (unconfirmed) Non-specific change in ST segment in Inferior leads Nonspecific T wave abnormality no longer evident in Lateral leads Confirmed by Juanjo Denney ([id number]) on 06/22/2025 9:41:32 AM Referred By: REFERRED SELF Confirmed By: Juanjo Dneney
--- NOTE | 2025-06-22 09:45 | Electrocardiogram Report ---
Test Reason : Blood Pressure : */* mmHG Vent. Rate : 52 BPM Atrial Rate : 52 BPM P-R Int : 186 ms QRS Dur : 88 ms QT Int : 456 ms P-R-T Axes : 5 -4 28 degrees QTcB Int : 424 ms Sinus bradycardia Minimal voltage criteria for LVH, may be normal variant ( R in aVL ) Nonspecific ST abnormality Abnormal ECG When compared with ECG of 21-Jun-2025 20:44, (unconfirmed) No significant change was found Confirmed by Juanjo Denney ([id number]) on 06/22/2025 9:45:11 AM Referred By: REFERRED SELF Confirmed By: Juanjo Denney
--- NOTE | 2025-06-22 09:46 | Electrocardiogram Report ---
Test Reason : Blood Pressure : */* mmHG Vent. Rate : 54 BPM Atrial Rate : 54 BPM P-R Int : 190 ms QRS Dur : 88 ms QT Int : 470 ms P-R-T Axes : 37 12 -24 degrees QTcB Int : 445 ms Sinus bradycardia T wave abnormality, consider inferior ischemia Abnormal ECG When compared with ECG of 21-Jun-2025 21:29, (unconfirmed) ST no longer elevated in Inferior leads Confirmed by Juanjo Denney ([id number]) on 06/22/2025 9:46:27 AM Referred By: REFERRED SELF Confirmed By: Juanjo Denney
--- NOTE | 2025-06-22 12:06 | Hospitalist Progress Note ---
Date of Service June 22, 2025 Assessment & Plan (1) Acute non-ST elevation myocardial infarction (NSTEMI): Plan: 69-year-old man who goes to [facility] with past medical history significant for hypertension, hyperlipidemia, BPH, chronic headaches, depression and anxiety and ongoing tobacco abuse presents with chest pain started a few nights ago radiating to both arms initially and later the pain was located in the middle of the chest which lasted for about 20 minutes and elevated BP. Non-ST elevated [place] Currently asymptomatic EKG noted TWI in III Initial troponin 339->>>415->360->>>456->438 Got aspirin and started on IV heparin in the ER Continue IV heparin, aspirin 81 mg daily, Continue Atorvastatin 80 mg TTE noted EF 55-60%, mild hypokinesis of basal inferoseptal wall and inferior wall, mild MR Plan for cath tomorrow. NPO PMN History of hypertension On propranolol Med list obtained from [place] showed patient was on losartan 50mg daily at home. Resumed Hyperlipidemia Atorvastatin was increased to 80 mg daily on admission BPH On Flomax Depression/anxiety Continue current psych meds Denied SI/HI Patient discussed with psych liason Possible Chronic kidney disease Patient does not know his baseline creatinine Cr of 1.59 on admission Cr is 1.44 today. Monitor DM Recently started on Jardiance as per patient. Holding for now as patient may need procedure HbA1c 6.2 ISS for now Chronic back pain DVT prophylaxis - IV heparin Full code. I spent a total of 50 minutes coordinating, documenting and providing care for this patient excluding time spent in performance of separately billed services Admission and Anticipated Discharge Date Admission Date: June 20, 2025 Subjective Patient seen and examined Had chest pain overnight with trop trending up No chest pain at this time No other complaints at this time Reports he had a good discussion with Psych liason who provided him some education/resources Physical Exam Constitutional: + well hydrated; no acute distress Eyes: PERRL, conjunctivae normal, anicteric sclerae ENMT: external ear and nose normal, oropharynx normal Respiratory: normal respiratory effort, lungs clear to auscultation Cardiovascular: Rate/Rhythm: regular rhythm and + bradycardic Gastrointestinal (Abdomen): normal bowel sounds, soft, nontender, no hepatosplenomegaly Musculoskeletal: No pedal edema Neurologic: PERRL, EOMI, accommodation nl, no face palsy, no dysarthria Psychiatric: A+Ox3, euthymic affect Results & Data Results & Data Vital Signs (Past 12 Hours) Vital Signs Temp Pulse Pulse Resp BP Pulse Ox O2 Del Method 06/22/25 11:59 36.5 C 55 L 18 109/66 95 Room Air 06/22/25 08:00 52 L 06/22/25 08:00 Room Air 06/22/25 07:36 36.3 C L 51 L 18 111/55 L 96 Room Air 06/22/25 04:04 36.5 C 53 L 18 95 Room Air Laboratory Results Abnormal lab results 06/21/25 06/21/25 06/21/25 Range/Units 16:47 17:04 19:51 RBC (4.70-6.10) M/uL Hgb (14.0-18.0) g/dL Hct (42.0-52.0) % MPV (9.4-12.4) fL Chloride (98-107) mmol/L Creatinine (0.6-1.4) mg/dl POC Glucose 120 H 152 H (70-99) mg/dl Troponin I High Sens 309.8 H* (0-20) pg/ml 06/21/25 06/21/25 06/22/25 Range/Units 21:31 23:31 05:45 RBC 4.24 L (4.70-6.10) M/uL Hgb 12.7 L (14.0-18.0) g/dL Hct 37.9 L (42.0-52.0) % MPV 8.9 L (9.4-12.4) fL Chloride 108 H (98-107) mmol/L Creatinine 1.44 H (0.6-1.4) mg/dl POC Glucose (70-99) mg/dl Troponin I High Sens 316.1 H* 348.8 H* 456.3 H* D (0-20) pg/ml 06/22/25 06/22/25 06/22/25 Range/Units 08:00 10:21 11:51 RBC (4.70-6.10) M/uL Hgb (14.0-18.0) g/dL Hct (42.0-52.0) % MPV (9.4-12.4) fL Chloride (98-107) mmol/L Creatinine (0.6-1.4) mg/dl POC Glucose 106 H 129 H (70-99) mg/dl Troponin I High Sens 438.7 H* (0-20) pg/ml
--- NOTE | 2025-06-22 13:20 | Cardiology Progress Note ---
Date of Service June 22, 2025 Assessment & Plan (1) Acute non-ST elevation myocardial infarction (NSTEMI): (2) Chest pain: (3) Hypertension: (4) Dyslipidemia: Plan Assessment: 69 year old male with PMHx significant for HTN, HLD and family history of premature CAD that presented to the ER with complaints of chest pain radiating to bilateral arms and back for several hours. Little to no relief with ASA, current anti-hypertensives and Pepto-bismol. EKG with no acute ST e levation, but T wave inversion in inferior leads. Troponin with modest elevation, peaked and now trending down. Cardiology consulted for further evaluation. Plan 06/22/2025: 1. NSTEMI 2. Chest pain 3. HTN 4. Dyslipidemia -Patient now chest pain free, currently on heparin gtt -Blood pressure controlled -Troponin with modest elevation, peaked and now trending down. Repeat troponin after overnight chest pain is again, trending down. -Telemetry with no acute events overnight. -patient does not follow with a optometric tech and denies any prior heart events. He does carry multiple risk factors including HTN, HLD, prior alcohol and tobacco use, family history of biological father in his 30's suspected s/t to coronary disease and recent symptoms as outlined in HPI -Echocardiogram shows LVEF 55-60% with mild hypokinesis of the basal inferoseptal wall and inferior wall. Mild MR -Allow for patient to have a cardiac diet, NPO after midnight for planned ischemic evaluation. Dr. Rosario was advised of patient via [employer] and has given ok to add to cath board. -Continue to monitor closely on telemetry. -Continue Heparin gtt, Atorvastatin, ASA 81mg, Propranolol as per current r shabbirimen. Continue Atorvastatin, Propranolol, Losartan Case has been discussed with Dr. Gooden. Further recommendations regarding plan of care as per his assessment. I spent a total of 30 minutes on the date of service in preparation, delivery, documentation of the care provided to the patient excluding any time spent in the performance of separately billed services. MAYELA Brock [facility] Cardiology [facility] Admission and Anticipated Discharge Date Admission Date: June 20, 2025 Supervising Physician Co-Signing Physician Notes I have reviewed the advanced practitioner's documentation on the date of service referenced in note, and I agree with, and take responsibility for the plan of care. I spent a total of [20] minutes coordinating, documenting, and providing care for this patient excluding time spent in the performance of separately billed services or time spent by another provider. 69-year-old male with known history hypertension dyslipidemia and family history of premature coronary artery disease presents with chest pain elevated troponins peak of 453 Echocardiogram shows normal ejection fraction with hypokinesis of the basal inferior and inferoseptal wall. Episodes of intermittent chest pain on Monday. Today did not have any further episodes of chest pain discussed with interventional cardiology plan for cath tomorrow Continue with heparin drip and Imdur N.p.o. tonight Subjective 06/22/2025: Patient seen and examined in follow up today. Feeling better today. Per review of records and discussion with patient he had experienced brief episodes of chest pain last evening. Typically within 1 hour of eating. Oddly enough his pain did not start in his chest, but rather his finger tips and work up to his neck and chest. EKG's were obtained after 3pm and again around 9pm. There is notation for some mild ST elevation in the inferior leads, but not STEMI criteria. Per review of chart. the case was discussed with the audio production engineer optometric tech. Troponin levels show elevation into the 400's, but have not continued to climb. Repeat EKG this AM does not show any ST elevation, but does continue to show T wave inversion in the lateral leads. Patient is resting comfortably in bed at time of my examination, denies any recurrence in chest pain. He endorses a mild headache which he attributes to his chronic neck pain. Labs, vitals, diagnostics, telemetry and documentation reviewed. Telemetry reviewed showing Sinus Bradycardia rates 40-50's. No acute events overnight. Review of Systems Review of Systems: All systems reviewed & are unremarkable except as noted in HPI & below Physical Exam Constitutional: well developed, well nourished and + ill appearing; no acute distress Neck: normal visual inspection and trachea midline Respiratory: normal respiratory effort, lungs clear to auscultation Cardiovascular: RRR, no murmur, no edema Heart Sounds: normal S1 and normal S2 Vessels: dorsalis pedis pulses present and radial pulses present; no JVD Extremities: no edema Skin: no rashes, warm and dry Psychiatric: A+Ox3, euthymic affect Results & Data Vital Signs (Past 12 Hours) Vital Signs Temp Pulse Pulse Resp BP Pulse Ox O2 Del Method 06/22/25 11:59 36.5 C 55 L 18 109/66 95 Room Air 06/22/25 08:00 52 L 06/22/25 08:00 Room Air 06/22/25 07:36 36.3 C L 51 L 18 111/55 L 96 Room Air 06/22/25 04:04 36.5 C 53 L 18 95 Room Air Laboratory Results Cardiac Enzymes 06/21/25 06/21/25 06/21/25 Range/Units 16:47 21:31 23:31 Troponin I High Sens 309.8 H* 316.1 H* 348.8 H* (0-20) pg/ml 06/22/25 06/22/25 Range/Units 05:45 10:21 Troponin I High Sens 456.3 H* D 438.7 H* (0-20) pg/ml CBC 06/22/25 Range/Units 05:45 WBC 8.83 (4.8-10.8) K/ul RBC 4.24 L (4.70-6.10) M/uL Hgb 12.7 L (14.0-18.0) g/dL Hct 37.9 L (42.0-52.0) % Plt Count 152 (130-400) K/uL Comprehensive Metabolic Panel 06/22/25 Range/Units 05:45 Sodium 139 (136-145) mmol/L Potassium 3.6 (3.5-5.1) mmol/L Chloride 108 H (98-107) mmol/L Carbon Dioxide 21 (21-32) mmol/L BUN 20 (6-23) mg/dl Creatinine 1.44 H (0.6-1.4) mg/dl Glucose 96 (70-99(Fasting)) mg/dl Calcium 8.6 (8.6-10.3) mg/dl Intake and Output 06/21/25 06/22/25 06/22/25 22:59 06:59 14:59 Intake Total 687.05 / 1071.60 240 / 1071.60 253.05 / 253.05 Output Total Balance 686.05 / 1070.60 240 / 1070.60 253.05 / 253.05 Intake: IV 127.05 / 271.60 253.05 / 253.05 Heparin 12488 Unit/500 ml D5w 127.05 / 271.60 253.05 / 253.05 25,000 units In 500 ml @ 1,050 UNITS/HR 21 mls/hr IV .[id number] JONEL Rx#:[id number] Oral 560 / 800 240 / 800 Output: # Bowel Movements Other: # Unmeasured Voids 1 Weight 84 kg Weight Measurement Method Built in [facility] Care Time/CCT Total # of Minutes Spent Total Time Spent with Patient: Total time spent is greater than 50% in coordination of care (as documented) at patient's floor/unit and/or counseling patient: Coding Level of Care Code 28514 SUB INP/OBS CARE 3/50MIN Diagnoses Acute non-ST elevation myocardial infarction (NSTEMI) I21.4 Chest pain R07.9 Hypertension I10 Dyslipidemia E78.5 Time Spent (min) 30
[2025-06-23 06:06] LABS: Hematocrit (blood only) 38.2 % (42.0-52.0); Hemoglobin 13.4 g/dL (14.0-18.0); Mean Corpuscular Hemoglobin 31.0 pg (25.0-34.0); Mean Corpuscular Volume 88.4 fL (80.0-100.0); Platelet Count 162 K/uL (130-400); RDW Standard Deviation 44.3 fL (36.4-46.3); Red Blood Count 4.32 M/uL (4.70-6.10); White Blood Count 7.95 K/ul (4.8-10.8)
[2025-06-23 06:28] LABS: Anion Gap 8.0 (3-11); Blood Urea Nitrogen 20.0 mg/dl (6-23); Calcium 8.8 mg/dl (8.6-10.3); Carbon Dioxide 22.0 mmol/L (21-32); Chloride 110.0 mmol/L (98-107); Creatinine Clr Calc Pharmacy 49.8 ml/min; Glucose 112.0 mg/dl (70-99(Fasting)); Potassium 3.4 mmol/L (3.5-5.1); Sodium 140.0 mmol/L (136-145)
[2025-06-23 06:40] LABS: ANTI-Xa, UFH(UnfractionatedHep 0.36 IU/ml (0.3-0.7)
[2025-06-23] MEDS: POTASSIUM ACETATE/NSS 10 MEQ/105 ML BAG IV SCH (08:31)
[2025-06-23] MEDS: ASPIRIN 81 MG CHEW ONE (09:09)
--- NOTE | 2025-06-23 09:13 | Pre Anesthesia Assessment ---
Date of Service June 23, 2025 Pre Sedation Assessment Vital Signs Temp Pulse Pulse Resp BP BP Pulse Ox 06/23/25 09:00 62 18 164/90 H 96 06/23/25 07:43 36.4 C L 60 18 147/79 H 94 06/23/25 03:43 36.7 C 60 18 152/78 H 96 06/22/25 22:52 36.5 C 57 L 18 162/84 H 97 06/22/25 21:58 58 L 06/22/25 20:18 36.6 C 60 19 154/85 H 96 06/22/25 15:43 36.6 C 59 L 18 138/71 95 06/22/25 14:00 54 L 06/22/25 11:59 36.5 C 55 L 18 109/66 95 O2 Del Method 06/23/25 09:00 Room Air 06/23/25 07:43 Room Air 06/23/25 03:43 Room Air 06/22/25 22:52 Room Air 06/22/25 21:58 06/22/25 20:18 Room Air 06/22/25 15:43 Room Air 06/22/25 14:00 06/22/25 11:59 Room Air Cardiovascular RRR, no murmur, no edema Respiratory normal respiratory effort, lungs clear to auscultation Pre-Sedation Airway Assessment Smoking Status: Current every day smoker Hx Sleep Apnea: No Short, Thick Neck: No Thyromental Distance: > or= 3.5 Finger Breadths Oral Cavity: + Dentures Mallampati Class: III ASA: ASA3 NPO Status Date of Last Intake of Fluids: 06/23/25 Time of Last Intake of Fluids: 08:15 Date of Last Intake of Solid Food: 06/22/25 Time of Last Intake of Solid Foods: 00:00 Notes The planned sedation has been discussed with the patient. Informed Consent was obtained. I have identified the patient, determined the appropriateness of sedation and have assessed the patient immediately prior to the procedure. All medicine(s) and interventions are by my order.
[2025-06-23] MEDS: MIDAZOLAM HCL 1 MG/ML 2ML VIAL ONE ×2 (10:19→10:22)
[2025-06-23] MEDS: diphenhydrAMINE 50 MG/ML VIAL ONE (10:19)
[2025-06-23] MEDS: NITROGLYCERIN/D5W 100MCG/ML 20ML SYR ONE (10:20)
[2025-06-23] MEDS: OPTIRAY 350 ONE (10:21)
[2025-06-23] MEDS: niCARdipine 2,000 MCG/20 ML SYR ONE (10:21)
[2025-06-23] MEDS: HEPARIN (PORCINE) 1000 UNIT/ML 10 ML (CATH LAB USE ONLY) ONE (10:22)
[2025-06-23] MEDS: IODIXANOL (VISIPAQUE) 320 MG/ML 100ML IV ONE (10:25)
--- NOTE | 2025-06-23 10:28 | Post Anesthesia Assessment ---
Date of Service June 23, 2025 Post Sedation Assessment Vital Signs Temp Pulse Pulse Resp BP BP Pulse Ox 06/23/25 09:20 53 L 06/23/25 09:00 62 18 164/90 H 96 06/23/25 07:43 36.4 C L 60 18 147/79 H 94 06/23/25 03:43 36.7 C 60 18 152/78 H 96 06/22/25 22:52 36.5 C 57 L 18 162/84 H 97 06/22/25 21:58 58 L 06/22/25 20:18 36.6 C 60 19 154/85 H 96 06/22/25 15:43 36.6 C 59 L 18 138/71 95 06/22/25 14:00 54 L 06/22/25 11:59 36.5 C 55 L 18 109/66 95 O2 Del Method 06/23/25 09:20 06/23/25 09:00 Room Air 06/23/25 07:43 Room Air 06/23/25 03:43 Room Air 06/22/25 22:52 Room Air 06/22/25 21:58 06/22/25 20:18 Room Air 06/22/25 15:43 Room Air 06/22/25 14:00 06/22/25 11:59 Room Air Recovery Score Activity: Moves 4 extremities Respiration: Deep Breath/Cough Circulation: +/-20% PreAnes Value Consciousness: Fully Awake Oxygen Saturation: > 92% On Room Air Discharge Sedation Level of Care: Fast Track Phase II Post Sedation Plan On clinical assessment, the patient appears to have tolerated the sedation without complications. Patient is recovering as anticipated. Patient will continue to be monitored by nursing and may be discharged when sedation discharge criteria are met per below protocol. Upon Completions of procedure up to 15 minutes continue every 5 minute vital sig ns and the P.A.R. score; then discharge to a Phase I or Fast Track to Phase II per the following guidelines: * Discharge Patient to appropriate Phase II area if PAR is 8 or greater or return to pre- procedure baseline. The post - procedure orders will be as directed. * If PAR score is less than 8 or not return to pre-procedure baseline then patient will follow Phase I monitoring till PAR is reached for Phase II. The Phase I may be done in procedure room or may call to secure a Phase I area. * If naloxone or flumazenil are used for reversal, hold in Phase I for continued monitoring from when last reversal dose was given for a minimum of 60 minutes or longer pending the nurse and/or physician discretion of patient condition before discharge to Phase II. Please call the Sedation Physician to re-evaluate and complete post-note for discharge to Phase II area. Do NOT discharge from procedure sedation or Phase 1 until post- sedation evaluation note is complete by procedure /sedation MD Sedation Discharge Instructions to be given to the patient at discharge to home. [facility] Procedure Codes (Charges) Indication for Procedure Indication for procedure: NSTEMI
[2025-06-23] MEDS: TICAGRELOR 90 MG TAB ONE (10:44)
--- NOTE | 2025-06-23 11:26 | Hospitalist Progress Note ---
Date of Service June 23, 2025 Assessment & Plan (1) Acute non-ST elevation myocardial infarction (NSTEMI): Plan: 69-year-old man who goes to [facility] with past medical history significant for hypertension, hyperlipidemia, BPH, chronic headaches, depression and anxiety and ongoing tobacco abuse presents with chest pain started a few nights ago radiating to both arms initially and later the pain was located in the middle of the chest which lasted for about 20 minutes and elevated BP. Non-ST elevated [place] EKG noted TWI in III Initial troponin 339->>>415->360->>>456->438 Got aspirin and started on IV heparin in the ER TTE noted EF 55-60%, mild hypokinesis of basal inferoseptal wall and inferior wall, mild MR S/p Cardiac cath today with stent placement Will follow up full cardiac cath report for details Continue ASA 81mg Started on Brilinta Continue atorvastatin Will follow up Cards History of hypertension On propranolol Continue losartan Hyperlipidemia Atorvastatin was increased to 80 mg daily on admission BPH On Flomax Depression/anxiety Continue current psych meds Denied SI/HI Patient discussed with psych liason Possible Chronic kidney disease Patient does not know his baseline creatinine Cr of 1.59 on admission Cr is 1.49 today. Monitor Replete hypokalemia and monitor DM Recently started on Jardiance as per patient. Holding for now as patient may need procedure HbA1c 6.2 ISS for now Chronic back pain DVT prophylaxis - Off heparin drip now. Will reassess to resume pharm DVT ppx tomorrow. Still has band on cath access site Full code. 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 Reports feeling body aches No other complaints at this time Physical Exam Constitutional: + well hydrated; no acute distress Eyes: PERRL, conjunctivae normal, anicteric sclerae ENMT: external ear and nose normal, oropharynx normal Respiratory: normal respiratory effort, lungs clear to auscultation Cardiovascular: Rate/Rhythm: regular rate and regular rhythm Gastrointestinal (Abdomen): normal bowel sounds, soft, nontender, no hepatosplenomegaly Neurologic: PERRL, EOMI, accommodation nl, no face palsy, no dysarthria Psychiatric: A+Ox3, euthymic affect Results & Data Results & Data Vital Signs (Past 12 Hours) Vital Signs Temp Pulse Pulse Resp BP BP Pulse Ox 06/23/25 11:21 36.5 C 60 17 149/75 H 96 06/23/25 11:06 64 17 148/70 H 97 06/23/25 10:45 65 126/64 100 06/23/25 10:30 66 170/66 H 99 06/23/25 09:20 53 L 06/23/25 09:00 62 18 164/90 H 96 06/23/25 07:43 36.4 C L 60 18 147/79 H 94 06/23/25 03:43 36.7 C 60 18 152/78 H 96 O2 Del Method 06/23/25 11:21 Room Air 06/23/25 11:06 Room Air 06/23/25 10:45 Room Air 06/23/25 10:30 Room Air 06/23/25 09:20 06/23/25 09:00 Room Air 06/23/25 07:43 Room Air 06/23/25 03:43 Room Air Laboratory Results Abnormal lab results 06/22/25 06/23/25 06/23/25 Range/Units 19:54 05:19 08:27 RBC 4.32 L (4.70-6.10) M/uL Hgb 13.4 L (14.0-18.0) g/dL Hct 38.2 L (42.0-52.0) % MPV 9.3 L (9.4-12.4) fL Activ Coag Time Kaolin (94-140) SECONDS Potassium 3.4 L (3.5-5.1) mmol/L Chloride 110 H (98-107) mmol/L Creatinine 1.49 H (0.6-1.4) mg/dl Glucose 112 H (70-99(Fasting)) mg/dl POC Glucose 123 H 124 H (70-99) mg/dl 06/23/25 06/23/25 06/23/25 Range/Units 10:03 11:58 16:59 RBC (4.70-6.10) M/uL Hgb (14.0-18.0) g/dL Hct (42.0-52.0) % MPV (9.4-12.4) fL Activ Coag Time Kaolin 307 H (94-140) SECONDS Potassium (3.5-5.1) mmol/L Chloride (98-107) mmol/L Creatinine (0.6-1.4) mg/dl Glucose (70-99(Fasting)) mg/dl POC Glucose 116 H 112 H (70-99) mg/dl
--- NOTE | 2025-06-23 14:19 | Electrocardiogram Report ---
Test Reason : Blood Pressure : */* mmHG Vent. Rate : 52 BPM Atrial Rate : 52 BPM P-R Int : 168 ms QRS Dur : 88 ms QT Int : 466 ms P-R-T Axes : 13 -6 2 degrees QTcB Int : 433 ms Sinus bradycardia Minimal voltage criteria for LVH, may be normal variant Nonspecific ST abnormality Abnormal ECG When compared with ECG of 21-Jun-2025 15:34, No significant change was found Confirmed by Vimal Tyler ([id number] on 06/23/2025 2:18:59 PM Referred By: REFERRED SELF Confirmed By: Vimal Tyler
--- NOTE | 2025-06-23 14:41 | Electrocardiogram Report ---
Test Reason : Blood Pressure : */* mmHG Vent. Rate : 65 BPM Atrial Rate : 65 BPM P-R Int : 160 ms QRS Dur : 94 ms QT Int : 454 ms P-R-T Axes : 6 8 41 degrees QTcB Int : 472 ms Normal sinus rhythm Minimal voltage criteria for LVH, may be normal variant Nonspecific ST abnormality Abnormal ECG When compared with ECG of 22-Jun-2025 06:10, Nonspecific T wave abnormality has replaced inverted T waves in Inferior leads Confirmed by Vimal Tyler ([id number] on 06/23/2025 2:41:16 PM Referred By: REFERRED SELF Confirmed By: Vimal Tyler
[2025-06-23] MEDS ORDERED: Nursing to Pharmacy Communication SCH (20:45)
[2025-06-23] MEDS: TICAGRELOR 90 MG TAB PO SCH (20:47)
[2025-06-23] MEDS: MAGNESIUM OXIDE 400 MG TAB PO SCH (21:02)
[2025-06-24 06:21] LABS: Hematocrit (blood only) 39.2 % (42.0-52.0); Hemoglobin 13.6 g/dL (14.0-18.0); Mean Corpuscular Hemoglobin 30.3 pg (25.0-34.0); Mean Corpuscular Volume 87.3 fL (80.0-100.0); Platelet Count 165 K/uL (130-400); RDW Standard Deviation 44.5 fL (36.4-46.3); Red Blood Count 4.49 M/uL (4.70-6.10); White Blood Count 11.62 K/ul (4.8-10.8)
[2025-06-24 06:45] LABS: Anion Gap 10.0 (3-11); Blood Urea Nitrogen 16.0 mg/dl (6-23); Calcium 8.9 mg/dl (8.6-10.3); Carbon Dioxide 20.0 mmol/L (21-32); Chloride 110.0 mmol/L (98-107); Creatinine Clr Calc Pharmacy 54.2 ml/min; Glucose 100.0 mg/dl (70-99(Fasting)); Magnesium 2.2 mg/dl (1.7-2.4); Potassium 3.5 mmol/L (3.5-5.1); Sodium 140.0 mmol/L (136-145)
[2025-06-24 07:11] LABS: ANTI-Xa, UFH(UnfractionatedHep < 0.10 IU/ml (0.3-0.7)
--- NOTE | 2025-06-24 11:22 | Cardiac Catheterization ---
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 Cardiac Status Clinical evaluation leading to the procedure CAD Presenation: Non STEMI Anginal Classification: CCS IV Heart Failure: No Cardiogenic Shock within 24 Hours: No Cardiac Arrest within 24 Hours: No Imaging Studies Past 6 Months: Yes (Echo) Stress Studies Past 6 Months: No Coronary Anatomy Dominant: Right Left Main (% Stenosis): Normal LAD (% Stenosis): Mid (85-90%) D1 (% Stenosis): Normal D2 (% Stenosis): Proximal (50%) D3 (% Stenosis): Normal Circumflex (% Stenosis): Normal OM1 (% Stenosis): Normal OM2 (% Stenosis): Normal (Diffuse less than 40%) OM3 (% Stenosis): Distal (95%) and Normal (Diffuse less than 50%) L PL1 (% Stenosis): Normal RCA (% Stenosis): Proximal (40% with poststenotic dilatation) and Mid (Long 99%) R PDA (% Stenosis): Normal R PL1 (% Stenosis): Proximal (30%) Diagnostic Physicians Name: Luis Rosario MD, PhD Closure Device Percutaneous Entry Location: Radial Closure Device: Radial Band Recommendations: Medical Therapy and/or Counseling and PCI without planned CABG PCI Indication: PCI for high risk Non-SEBASTIAN Lesion Segment Name: Mid RCA Culprit Artery: Yes Stenosis Prior to Rx (%): 99 Chronic Total Occlusion: No Pre-Procedure TANK Flow: 1 Previously Treated Lesion: No Lesion Complexity: High/C Lesion Length (mm): 20 Thrombus Present: No Bifurcation Lesion: No Guidewire Across Lesion: Yes Intraprocedure Events Significant Disection: No Perforation: No Cardiac Cath Procedure Full Procedure Date June 23, 2025 Pre-Procedure Diagnosis Pre-Procedure Diagnosis: Non STEMI AUC Score AUC Score: 07 Post-Procedure Diagnosis Post-Procedure Diagnosis: Severe CAD and Successful PCI Procedure(s) Performed Procedure(s) Performed: Coronary Angiography and Drug Eluting Stent Community Leader Luis Rosario MD, PhD Estimated Blood Loss Estimated Blood Loss: 10 cc Medication(s) Medication(s): Diphenhydramine, Fentanyl, Heparin, Hydralazine, Lidocaine 1%, Nicardipine, Nitroglycerin and Versed Summary of Findings Brief description: Patient was brought to the cardiac catheterization suite where he was shaved and prepped in a sterile fashion. Sedated using IV Versed, fentanyl, and diphenhydramine. Soft tissues of the right wrist were anesthetized using 2 mL of 1% Xylocaine. The right radial artery was accessed with modified Seldinger technique and a 6 Norwegian radial artery glide sheath was inserted. Patient was provided anticoagulation with IV heparin and antispasmodics including nicardipine and nitroglycerin. All catheters were advanced and exchanged over a 0.035 J-tip wire. Left coronary angiography in orthogonal views with a 5 [place] 4 diagnostic catheter. Right coronary angiography in orthogonal views with a 5 [place] 4 diagnostic catheter. Diagnostic catheters were removed. Decision was made to proceed with PCI of the RCA. ACT was checked and additional heparin was provided as needed to maintain therapeutic anticoagulation. Initially tried a 6 Norwegian JR4 guide catheter but patient has significant vasospasm. Therefore we changed to a 5 Norwegian JR4 guide catheter. 5 Norwegian JR4 guide catheter used to engage the right coronary. BMW reversal guidewire was advanced and positioned distally in the RCA. Lesion was predilated using a 2.5 x 12 mm trek balloon inflated twice to 8 anne-marie. The balloon was removed and oil well pumper angiography performed. A 2.5 x 22 mm Gustavo LANG was then advanced and positioned across the lesion where it was deployed initially at 12 anne-marie. Stent balloon was removed and angiography was performed. Decision was made to post dilate the proximal portion of the stent. A 2.5 x 12 NC sprinter was then advanced and positioned across the proximal part of the stent. This was postdilated at 18 anne-marie. The balloon was then removed. After oil well pumper angiography decision was made to place a stent distally in an overlap fashion with the first stent. A 2.5 x 8 mm [place] drug-eluting stent was advanced and positioned distal to the first stent with its proximal segment overlapped with the distal part of the first stent. This was deployed at 12 anne-marie. Stent balloon pulled back to the overlap segment where postdilatation was up to 15 anne-marie. Stent balloon was then removed. A 2.75 x 8 [place] drug-eluting stent was then advanced and positioned in an overlap fashion with the proximal edge of the first stent. This was deployed in the proximal RCA at 14 anne-marie. Stent balloon was removed. There was still some residual disease at the proximal edge and decision was made made to place a 2.75 x 8 mm [place] drug-eluting stent just proximal and overlapped with the last stent. This was deployed at 16 anne-marie. Stent balloon was removed and oil well pumper angiography was performed. Decision was made to post dilate the stent train with a 2.75 x 12 mm NC Christian[place] balloon beginning at the distal portion of the initial stent. This was postdilated at 13 anne-marie. We then sequentially pulled the NC balloon back and postdilated at 14 anne-marie x 2 and 16 anne-marie once to the proximal edge of the last stent. Balloon was then removed. Angiography performed with a guidewire in place and then the guidewire was removed and final angiographic evaluation was performed. Guide catheter was then removed. Radial artery sheath was removed and hemostasis was obtained using the TR band. Patient was hemodynamically stable and asymptomatic. He was returned to the recovery area in stable condition. This ended the case. Coronary angiography findings: AOM-[id number] vessel bifurcating into LAD and circumflex. Mild luminal irregularities. LAD-large caliber and transapical. Proximal segment without disease. Then just before the ostium of the D1 is a long stenosis extending into the early distal vessel. This is 85 to 90% occluded. This involves the origin of the second diagonal as well but resolves before the ostium of the third diagonal. After the third diagonal the distal vessel has a focal 70% stenosis as it approaches the apex. LAD provides a small first diagonal, a medium caliber second diagonal which has diffuse up to 50% stenosis before it branches. There is a medium to large caliber third diagonal which branches and has mild luminal irregularities. LCx-large caliber and nondominant vessel. Travels in the AV groove. First branch is an atrial branch followed by a small OM1. There is then a large OM 2 which has diffuse less than 40% stenosis. This is followed by a large branching OM 3 which has diffuse less than 50% stenosis in the proximal and mid vessel. Very distally is a focal 95% stenosis. Circumflex also gives a large posterolateral which has luminal irregularities. RCA-this is large caliber and dominant. Proximally there is a 40% stenosis with poststenotic dilatation. Then the mid vessel has a long 99% stenosis. Distally there is no more than luminal irregularities. The vessel bifurcates into a large PDA and large branching posterolateral. PDA has luminal irregularities. The PLB has less than 30% stenosis. There is TANK I flow after the mid RCA stenosis. There are right to right collaterals to an occluded RV marginal branch and [id number] collaterals which are faint going to the PDA. The RCA is the culprit for non-ST elevation HI. PCI of RCA-0% residual stenosis post PCI. No evidence of dissection or perforation post PCI TANK-3 flow PCI Summary: 1. Patient has severe multivessel coronary disease. Severe LAD stenosis and RCA stenosis with the RCA being the culprit lesion. 2. Successful complex PCI of the RCA with implantation of 4 overlapped drug- eluting stents. 3. Guideline directed medical therapy for secondary prevention of coronary disease to include; low-dose aspirin, high intensity statin therapy, beta- kel, and ARAVIND inhibitor/ARB as tolerated. 4. Dual antiplatelet therapy with aspirin 81 mg daily and Brilinta 90 mg p.o. twice daily for 1 to 2 years. Preferably indefinitely given the extent of stenting. 5. Plan staged PCI of the LAD. Follow creatinine and hydrate with normal saline. Hemodynamics Rest Ao:: 105/65 mmHg Final Ao: 174/78 mmHg LV: Not performed Recommendations Recommendations: Medical Therapy and/or Counseling and PCI without planned CABG Radiation Exposure (mGy) 1778 mGy, fluoroscopy time 12.1 minutes Contrast (mls) 165 mL Anesthesia 2 mg Versed, 75 mcg fentanyl, 25 mg Benadryl. 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 Any exceptions are noted below. [facility] Card Cath Procedure Codes Cardiac Catheterization Procedure 1: Cardiovascular Cath Procedures: 59741 Coronaries Moderate Sedation Procedure 1: Sedation/Anesthesia: 87725 Mod Sedation by the same physician;Init15 Min Child Age 5 & Up (Initial 15 minutes, start time 933) Procedure 2: Sedation/Anesthesia: 90832 Mod Sedation by the same physician; Ea [id number] Minutes (Additional 33 minutes, end time 1022) Stenting Procedure 1: Cardiovascular Stent Procedures: 67308 Perc transluminal revascularization of acute sub/total occl, aMI (RCA) PG Care Time/CCT Total # of Minutes Spent Total Time Spent with Patient: Total time spent is greater than 50% in coordination of care (as documented) at patient's floor/unit and/or counseling patient:
--- NOTE | 2025-06-24 13:13 | Hospitalist Progress Note ---
Date of Service June 24, 2025 Assessment & Plan (1) Acute non-ST elevation myocardial infarction (NSTEMI): Plan: 69-year-old man who goes to [facility] with past medical history significant for hypertension, hyperlipidemia, BPH, chronic headaches, depression and anxiety and ongoing tobacco abuse presents with chest pain started a few nights ago radiating to both arms initially and later the pain was located in the middle of the chest which lasted for about 20 minutes and elevated BP. Non-ST elevated VT EKG noted TWI in III Initial troponin 339->>>415->360->>>456->438 Got aspirin and started on IV heparin in the ER TTE noted EF 55-60%, mild hypokinesis of basal inferoseptal wall and inferior wall, mild MR Was initially on hep gtt, now off after cath S/p Cardiac cath on 06/23/25 Patient has severe multivessel CAD. 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 Monitor DM Recently started on Jardiance as per patient. Holding for now as patient may need procedure HbA1c 6.2 ISS for now Chronic back pain DVT prophylaxis - Will reassess to resume pharm DVT ppx after 2nd cath tomorrow Full code. I spent a total of 50 minutes coordinating, documenting and providing care for this patient excluding time spent in performance of separately billed services Admission and Anticipated Discharge Date Admission Date: June 20, 2025 Subjective Patient seen and examined Reported panic attack this AM that has resolved No chest pain or any complaints at this time Physical Exam Constitutional: + well hydrated; no acute distress Eyes: PERRL, conjunctivae normal, anicteric sclerae ENMT: external ear and nose normal, oropharynx normal Respiratory: normal respiratory effort, lungs clear to auscultation Cardiovascular: Rate/Rhythm: regular rate and regular rhythm Gastrointestinal (Abdomen): normal bowel sounds, soft, nontender, no hepatosplenomegaly Musculoskeletal: No pedal edema Neurologic: PERRL, EOMI, accommodation nl, no face palsy, no dysarthria Psychiatric: A+Ox3, euthymic affect Results & Data Results & Data Vital Signs (Past 12 Hours) Vital Signs Temp Pulse Pulse Resp BP BP Pulse Ox 06/24/25 12: 36.4 C L 56 L 18 123/82 96 06/24/25 10:39 70 17 126/79 06/24/25 08:10 71 06/24/25 08:07 06/24/25 07:41 36.5 C 66 18 134/78 95 06/24/25 03:32 36.7 C 63 18 158/77 H 97 O2 Del Method 06/24/25 12:23 Room Air 06/24/25 10:39 06/24/25 08:10 06/24/25 08:07 Room Air 06/24/25 07:41 Room Air 06/24/25 03:32 Room Air Laboratory Results Abnormal lab results 06/23/25 06/23/25 06/24/25 Range/Units 16:59 20:47 05:31 WBC 11.62 H (4.8-10.8) K/ul RBC 4.49 L (4.70-6.10) M/uL Hgb 13.6 L (14.0-18.0) g/dL Hct 39.2 L (42.0-52.0) % Heparin Anti-Xa, Unfract < 0.10 L (0.3-0.7) IU/ml Chloride 110 H (98-107) mmol/L Carbon Dioxide 20 L (21-32) mmol/L Glucose 100 H (70-99(Fasting)) mg/dl POC Glucose 112 H 117 H (70-99) mg/dl 06/24/25 06/24/25 Range/Units 07:40 11:36 WBC (4.8-10.8) K/ul RBC (4.70-6.10) M/uL Hgb (14.0-18.0) g/dL Hct (42.0-52.0) % Heparin Anti-Xa, Unfract (0.3-0.7) IU/ml Chloride (98-107) mmol/L Carbon Dioxide (21-32) mmol/L Glucose (70-99(Fasting)) mg/dl POC Glucose 111 H 124 H (70-99) mg/dl
--- NOTE | 2025-06-24 16:00 | Cardiology Progress Note ---
Date of Service June 24, 2025 Assessment & Plan (1) Acute non-ST elevation myocardial infarction (NSTEMI): (2) Chest pain: (3) Hypertension: (4) Dyslipidemia: Plan Assessment: 69 year old male with PMHx significant for HTN, HLD and family history of premature CAD that presented to the ER with complaints of chest pain radiating to bilateral arms and back for several hours. Little to no relief with ASA, current anti-hypertensives and Pepto-bismol. EKG with no acute ST e levation, but T wave inversion in inferior leads. Troponin with modest elevation, peaked and then trend down. Cardiology consulted for further evaluation. CAD s/p LANG of mid RCA; for staged PCI of LAD on 06/25/25 NSTEMI HTN Dyslipidemia Recommendations: correct and f/u electrolytes f/u renal function continue DAPT continue Lipitor continue propranolol continue Losartan adjust anti-HTN meds keeping systolic BP between 100-140 mmHg avoid hypovolemia keep patient euvolemic DVT prophylaxis strict I&Os salt restriction counseling NPO except meds post MN for PCI on 06/25/25 Admission and Anticipated Discharge Date Admission Date: June 20, 2025 Subjective Patient on exam is lying in bed in NAD; no c/o cp, sob, palpitations, dizziness, LOC, cough, fever, nausea, vomiting, abdominal pain; able to ambulate in the room and bathroom; had a panic attack this AM thinking about his staged PCI -> dw patient -> feels better Review of Systems Review of Systems: as per hpi Physical Exam Constitutional: well developed; no acute distress Neck: normal visual inspection and trachea midline Respiratory: normal respiratory effort, lungs clear to auscultation Cardiovascular: Heart Sounds: normal S1 and normal S2 Vessels: dorsalis pedis pulses present and radial pulses present; no JVD Extremities: no edema Chest (Breasts): Additional Comments: BLBS, no rales, no wheezing Gastrointestinal (Abdomen): soft, NT, BS+ Skin: no rashes, warm and dry Psychiatric: A+Ox3, euthymic affect Results & Data Vital Signs (Past 12 Hours) Vital Signs Temp 36.4 C L 06/24/25 12:23 Pulse 56 L 06/24/25 12:23 Resp 18 06/24/25 12:23 BP 123/82 06/24/25 12:23 Pulse Ox 96 06/24/25 12:23 O2 Del Method Room Air 06/24/25 15:14 Intake & Output 06/23/25 06/24/25 06/24/25 18:59 06:59 18:59 Intake Total 1078.05 / 1518.05 440 / 1518.05 560 / 560 Output Total Balance 1077.05 / 1517.05 440 / 1517.05 557 / 557 Weight 83.2 kg Intake: IV 498.05 / 498.05 Heparin 26113 Unit/500 ml D5w 288.05 / 288.05 25,000 units In 500 ml @ 1,050 UNITS/HR 21 mls/hr IV .[id number] JONEL Rx#:[id number] Potassium Acetate/Nss 10 meq In 210 / 210 105 ml @ 105 mls/hr IV Q1H JONEL Rx#:[id number] Oral 580 / 1020 440 / 1020 560 / 560 Output: # Bowel Movements 3 Other: # Unmeasured Voids 2 1 1 Weight Measurement Method Built in [facility] Vital Signs Temp Pulse Pulse Resp BP BP Pulse Ox 06/24/25 15:14 06/24/25 12:23 36.4 C L 56 L 18 123/82 96 06/24/25 10:39 70 17 126/79 06/24/25 08:10 71 06/24/25 08:07 06/24/25 07:41 36.5 C 66 18 134/78 95 O2 Del Method 06/24/25 15:14 Room Air 06/24/25 12:23 Room Air 06/24/25 10:39 06/24/25 08:10 06/24/25 08:07 Room Air 06/24/25 07:41 Room Air Laboratory Results Laboratory Results WBC 11.62 K/ul (4.8-10.8) H 06/24/25 05:31 RBC 4.49 M/uL (4.70-6.10) L 06/24/25 05:31 Hgb 13.6 g/dL (14.0-18.0) L 06/24/25 05:31 Hct 39.2 % (42.0-52.0) L 06/24/25 05:31 MCV 87.3 fL (80.0-100.0) 06/24/25 05:31 MCH 30.3 pg (25.0-34.0) 06/24/25 05:31 MCHC 34.7 g/dL (32.0-36.0) 06/24/25 05:31 RDW Std Deviation 44.5 fL (36.4-46.3) 06/24/25 05:31 RDW Coeff of Misha 14.1 % (11.5-14.5) 06/24/25 05:31 Plt Count 165 K/uL (130-400) 06/24/25 05:31 MPV 9.4 fL (9.4-12.4) 06/24/25 05:31 Immature Gran % (Auto) 0.3 % 06/21/25 01:57 Neut % (Auto) 60.5 % 06/21/25 01:57 Lymph % (Auto) 24.6 % 06/21/25 01:57 Hemphill % (Auto) 10.8 % 06/21/25 01:57 Eos % (Auto) 3.0 % 06/21/25 01:57 Baso % (Auto) 0.8 % 06/21/25 01:57 Neut # (Auto) 6.25 K/uL (1.40-6.50) 06/21/25 01:57 Lymph # (Auto) 2.54 K/uL (1.20-3.40) 06/21/25 01:57 Hemphill # (Auto) 1.12 K/uL (0.11-0.59) H 06/21/25 01:57 Eos # (Auto) 0.31 K/uL (0.00-0.50) 06/21/25 01:57 Baso # (Auto) 0.08 K/uL (0.00-0.20) 06/21/25 01:57 Immature Gran # (Auto) 0.03 K/uL (0.01-0.20) 06/21/25 01:57 PT 10.5 Seconds (9.0-12.0) 06/20/25 17:33 INR 1.0 (0.9-1.1) 06/20/25 17:33 APTT 30 Seconds (21-31) 06/20/25 17:33 PTT Ratio 1.1 06/20/25 17:33 Activ Coag Time Kaolin 307 SECONDS (94-140) H 06/23/25 10:03 D-Dimer 300 ug/L FEU (0-500) 06/21/25 16:41 Heparin Anti-Xa, Unfract < 0.10 IU/ml (0.3-0.7) L 06/24/25 05:31 Sodium 140 mmol/L (136-145) 06/24/25 05:31 Potassium 3.5 mmol/L (3.5-5.1) 06/24/25 05:31 Chloride 110 mmol/L (98-107) H 06/24/25 05:31 Carbon Dioxide 20 mmol/L (21-32) L 06/24/25 05:31 Anion Gap 10 (3-11) 06/24/25 05:31 BUN 16 mg/dl (6-23) 06/24/25 05:31 Creatinine 1.37 mg/dl (0.6-1.4) 06/24/25 05:31 Est Cr Clr Drug Dosing 54.2 ml/min 06/24/25 05:31 eGFR 55.84 06/24/25 05:31 BUN/Creatinine Ratio 11.7 (10-20) 06/24/25 05:31 Glucose 100 mg/dl (70-99(Fasting)) H 06/24/25 05:31 POC Glucose 124 mg/dl (70-99) H 06/24/25 11:36 Estimat Average Glucose 131 mg/dl 06/21/25 01:57 Hemoglobin A1c 6.2 % (4.5-5.6) H 06/21/25 01:57 Calcium 8.9 mg/dl (8.6-10.3) 06/24/25 05:31 Phosphorus 3.2 mg/dl (2.5-4.9) 06/24/25 05:31 Magnesium 2.2 mg/dl (1.7-2.4) 06/24/25 05:31 Total Bilirubin 0.8 mg/dl (0.2-1.0) 06/20/25 17:33 AST 19 U/L (13-39) 06/20/25 17:33 ALT 14 U/L (7-52) 06/20/25 17:33 Alkaline Phosphatase 91 U/L (34-104) 06/20/25 17:33 Troponin I High Sens 405.2 pg/ml (0-20) H* 06/22/25 16:41 Total Protein 7.0 gm/dl (6.0-8.3) 06/20/25 17:33 Albumin 4.3 gm/dl (3.4-5.0) 06/20/25 17:33 Globulin 2.7 gm/dl (2.5-4.0) 06/20/25 17:33 Albumin/Globulin Ratio 1.6 (0.9-2) 06/20/25 17:33 Triglycerides 65 mg/dl (0-150) 06/21/25 01:57 Cholesterol 94 mg/dl (0-200) 06/21/25 01:57 LDL Cholesterol, Calc 52 mg/dl 06/21/25 01:57 VLDL Cholesterol, Calc 13 mg/dl (0-30) 06/21/25 01:57 HDL Cholesterol 29 mg/dl 06/21/25 01:57 Cholesterol/HDL Ratio 3.2 (0-5) 06/21/25 01:57 Impressions Chest X-Ray 06/20/25 17:25 Single frontal view of the chest No comparison Impression No acute pulmonary pathology Electronically signed by Jaime Deras 06-20-2025 7:42 PM Diagnostic Findings CBC 06/24/25 Range/Units 05:31 WBC 11.62 H (4.8-10.8) K/ul RBC 4.49 L (4.70-6.10) M/uL Hgb 13.6 L (14.0-18.0) g/dL Hct 39.2 L (42.0-52.0) % Plt Count 165 (130-400) K/uL Comprehensive Metabolic Panel 06/24/25 Range/Units 05:31 Sodium 140 (136-145) mmol/L Potassium 3.5 (3.5-5.1) mmol/L Chloride 110 H (98-107) mmol/L Carbon Dioxide 20 L (21-32) mmol/L BUN 16 (6-23) mg/dl Creatinine 1.37 (0.6-1.4) mg/dl Glucose 100 H (70-99(Fasting)) mg/dl Calcium 8.9 (8.6-10.3) mg/dl Intake and Output 06/24/25 06/24/25 06/24/25 06:59 14:59 22:59 Intake Total 440 / 1518.05 560 / 560 Output Total 3 / 3 Balance 440 / 1517.05 557 / 557 Intake: Oral 440 / 1020 560 / 560 Output: # Bowel Movements 3 / Other: # Unmeasured Voids 1 1 Weight 83.2 kg Weight Measurement Method Built in [facility] Medications Administered Home Medications Medication Instructions Recorded Confirmed Last Taken alprazolam 0.25 mg tablet (Xanax) 0.25 mg PO TID PRN Anxiety 06/20/25 06/20/25 Unknown atorvastatin 40 mg tablet 20 mg PO DAILY 06/20/25 06/20/25 Unknown cetirizine 10 mg tablet 10 mg PO DAILY 06/20/25 06/20/25 Unknown magnesium oxide 420 mg tablet 420 mg PO DAILY 06/20/25 06/20/25 Unknown propranolol 120 mg capsule,24 120 mg PO DAILY 06/20/25 06/20/25 Unknown hr,extended release tamsulosin 0.4 mg capsule 0.4 mg PO DAILY 06/20/25 06/20/25 Unknown topiramate 50 mg tablet 50 mg PO BID Headache 06/20/25 06/21/25 Unknown venlafaxine 150 mg 300 mg PO DAILY 06/20/25 06/21/25 Unknown capsule,extended release 24 hr empagliflozin 25 mg tablet 12.5 mg PO DAILY 06/21/25 06/21/25 Unknown fluticasone propionate 50 2 spray intranasal DAILY 06/21/25 06/21/25 Unknown mcg/actuation nasal spray,suspension losartan 50 mg tablet 50 mg PO DAILY 06/21/25 06/21/25 Unknown pantoprazole 40 mg tablet,delayed 40 mg PO DAILY 06/21/25 06/21/25 Unknown release Active Medications Generic Name Dose Route Start Last Admin Trade Name Freq PRN Reason Stop Dose Admin Acetaminophen 650 mg 06/20/25 22:21 06/23/25 11:31 Acetaminophen 325 Mg Tab PO 07/20/25 22:20 650 mg Q4H PRN Administration Pain or Fever Alprazolam 0.25 mg 06/20/25 23:34 06/24/25 08:23 Alprazolam 0.25 Mg Tablet PO 07/20/25 23:33 0.25 mg TID PRN Administration Anxiety Aspirin 81 mg 06/21/25 09:00 06/24/25 08:19 Aspirin 81 Mg Ectab PO 07/21/25 08:59 81 mg QAM JONEL Administration Atorvastatin Calcium 80 mg 06/20/25 19:00 06/24/25 08:18 Atorvastatin 40 Mg Tab PO 07/20/25 18:59 80 mg QAM JONEL Administration Cetirizine HCl 10 mg 06/21/25 09:00 06/24/25 08:19 Cetirizine Hcl 10 Mg Tablet PO 07/21/25 08:59 10 mg DAILY JONEL Administration Insulin Aspart 0 units 06/21/25 16:30 06/24/25 11:40 Insulin Aspart Per Unit Charge SC 07/21/25 00:00 Not Given ACHS JONEL Losartan Potassium 50 mg 06/22/25 09:00 06/24/25 08:18 Losartan Potassium 50 Mg Tab PO 07/22/25 08:59 50 mg QAM JONEL Administration Magnesium Oxide 400 mg 06/23/25 21:00 06/23/25 21:02 Magnesium Oxide 400 Mg Tab PO 07/23/25 20:59 400 mg HS JONEL Administration Nitroglycerin 0.4 mg 06/20/25 22:21 06/23/25 10:46 Nitroglycerin Sl 0.4 Mg/Tab Tab SL 07/20/25 22:20 0.4 mg Q5M PRN Administration Chest Pain Pantoprazole Sodium 40 mg 06/22/25 09:00 06/24/25 08:19 Pantoprazole 40 Mg Tab PO 07/22/25 08:59 40 mg QAM JONEL Administration Propranolol HCl 120 mg 06/21/25 09:00 06/24/25 08:18 Propranolol Hcl 60 Mg [place] PO 07/21/25 08:59 120 mg DAILY JONEL Administration Tamsulosin HCl 0.4 mg 06/21/25 09:00 06/24/25 08:19 Tamsulosin Hcl 0.4 Mg Cap PO 07/21/25 08:59 0.4 mg DAILY JONEL Administration Ticagrelor 90 mg 06/23/25 21:00 06/24/25 08:23 Ticagrelor 90 Mg Tab PO 07/23/25 20:59 90 mg BID JONEL Administration Topiramate 50 mg 06/21/25 21:00 06/24/25 08:18 Topiramate 50 Mg Tab PO 07/21/25 20:59 50 mg BID JONEL Administration Venlafaxine HCl 300 mg 06/22/25 09:00 06/24/25 08:17 Venlafaxine Hcl Xr 150 Mg Capxr PO 07/22/25 08:59 300 mg DAILY JONEL Administration PG Care Time/CCT Total # of Minutes Spent Total Time Spent with Patient: Total time spent is greater than 50% in coordination of care (as documented) at patient's floor/unit and/or counseling patient: Coding Level of Care Code 71577 SUB INP/OBS CARE 3/50MIN Diagnoses Acute non-ST elevation myocardial infarction (NSTEMI) I21.4 Chest pain R07.9 Hypertension I10 Dyslipidemia E78.5
[2025-06-25] MEDS: SODIUM CHLORIDE 0.9% 500 ML IV ONE (02:14)
[2025-06-25] MEDS: SODIUM CHLORIDE 0.9% 1,000 ML IV SCH (03:13)
[2025-06-25] MEDS ORDERED: Nursing to Pharmacy Communication SCH ×2 (03:45→19:15)
[2025-06-25 03:54] LABS: Cdiff Toxin B Gene (2yr or >) Positive Cdiff Gene (Neg)
[2025-06-25 04:47] LABS: Cdiff Toxin A+B Negative Cdiff Toxin (Negative)
[2025-06-25] MEDS: INSULIN ASPART PER UNIT CHARGE SC SCH ×2 (05:38→20:19)
[2025-06-25 06:05] LABS: Hematocrit (blood only) 38.0 % (42.0-52.0); Hemoglobin 13.2 g/dL (14.0-18.0); Mean Corpuscular Hemoglobin 30.8 pg (25.0-34.0); Mean Corpuscular Volume 88.8 fL (80.0-100.0); Platelet Count 154 K/uL (130-400); RDW Standard Deviation 45.5 fL (36.4-46.3); Red Blood Count 4.28 M/uL (4.70-6.10); White Blood Count 11.82 K/ul (4.8-10.8)
[2025-06-25 06:39] LABS: Anion Gap 8.0 (3-11); Blood Urea Nitrogen 20.0 mg/dl (6-23); Calcium 8.9 mg/dl (8.6-10.3); Carbon Dioxide 19.0 mmol/L (21-32); Chloride 112.0 mmol/L (98-107); Creatinine Clr Calc Pharmacy 49.5 ml/min; Glucose 111.0 mg/dl (70-99(Fasting)); Magnesium 2.0 mg/dl (1.7-2.4); Potassium 3.5 mmol/L (3.5-5.1); Sodium 139.0 mmol/L (136-145)
[2025-06-25] MEDS: VANCOMYCIN HCL 125 MG CAP PO STA (06:44)
--- NOTE | 2025-06-25 07:28 | Communication Note ---
Date of Service: June 25, 2025 Last night when patient went to bathroom felt dizzy and palpitations. At that time vitals were ok. He companied of mild chest discomfort. EKG ok. Gave nitro SL. His Blood pressure dropped and was also having diarrhea. Chest pain improved.After sometime BP improved . Gave 500cc fluid bolus and started on maintenance fluids. Stool studies came back positive for c diff gene but negative for toxin. But as he had multiple episodes of diarrhea, starting on po vanco. Also his Am trop trending up. Ordered repeat troponin.
[2025-06-25] MEDS: ASPIRIN 81 MG CHEW ONE (07:42)
--- NOTE | 2025-06-25 08:33 | Pre Anesthesia Assessment ---
Date of Service June 25, 2025 Pre Sedation Assessment Vital Signs Temp Pulse Pulse Resp BP BP Pulse Ox 06/25/25 07:41 56 L 22 175/86 H 99 06/25/25 07:31 56 L 22 175/86 H 99 06/25/25 03:37 145/75 H 06/25/25 02:07 63 93/60 L 06/25/25 02:00 82 69/33 L 06/25/25 01:42 55 L 160/82 H 97 06/24/25 22:58 36.7 C 54 L 18 143/84 H 97 06/24/25 22:40 55 L 06/24/25 20:30 06/24/25 20:16 37.0 C 60 20 119/70 96 06/24/25 17:39 36.2 C L 56 L 18 127/77 97 06/24/25 15:14 06/24/25 12:23 36.4 C L 56 L 18 123/82 96 06/24/25 10:39 70 17 126/79 O2 Del Method 06/25/25 07:41 Room Air 06/25/25 07:31 Room Air 06/25/25 03:37 06/25/25 02:07 06/25/25 02:00 06/25/25 01:42 Room Air 06/24/25 22:58 Room Air 06/24/25 22:40 06/24/25 20:30 Room Air 06/24/25 20:16 Room Air 06/24/25 17:39 Room Air 06/24/25 15:14 Room Air 06/24/25 12:23 Room Air 06/24/25 10:39 Cardiovascular RRR, no murmur, no edema Respiratory normal respiratory effort, lungs clear to auscultation Pre-Sedation Airway Assessment Smoking Status: Current every day smoker Hx Sleep Apnea: No Short, Thick Neck: No Thyromental Distance: > or= 3.5 Finger Breadths Oral Cavity: + Dentures Mallampati Class: III Mallampati 3 ASA: ASA3 ASA 3 NPO Status Date of Last Intake of Fluids: 06/25/25 Time of Last Intake of Fluids: 07:42 Last Oral Intake of Fluids Comment: sip with medications Date of Last Intake of Solid Food: 06/25/25 Time of Last Intake of Solid Foods: 00:00 Notes The planned sedation has been discussed with the patient. Informed Consent was obtained. I have identified the patient, determined the appropriateness of sedation and have assessed the patient immediately prior to the procedure. All medicine(s) and interventions are by my order.
[2025-06-25] MEDS: niCARdipine 2,000 MCG/20 ML SYR ONE (08:59)
[2025-06-25] MEDS: NITROGLYCERIN/D5W 100MCG/ML 20ML SYR ONE (09:00)
[2025-06-25] MEDS: diphenhydrAMINE 50 MG/ML VIAL ONE (09:19)
[2025-06-25] MEDS: HEPARIN (PORCINE) 1000 UNIT/ML 10 ML (CATH LAB USE ONLY) ONE (09:19)
[2025-06-25] MEDS: MIDAZOLAM HCL 1 MG/ML 2ML VIAL ONE (09:19)
--- NOTE | 2025-06-25 09:26 | Post Anesthesia Assessment ---
Date of Service June 25, 2025 Post Sedation Assessment Vital Signs Temp Pulse Pulse Resp BP BP Pulse Ox 06/25/25 07:41 56 L 22 175/86 H 99 06/25/25 07:31 56 L 22 175/86 H 99 06/25/25 03:37 145/75 H 06/25/25 02:07 63 93/60 L 06/25/25 02:00 82 69/33 L 06/25/25 01:42 55 L 160/82 H 97 06/24/25 22:58 36.7 C 54 L 18 143/84 H 97 06/24/25 22:40 55 L 06/24/25 20:30 06/24/25 20:16 37.0 C 60 20 119/70 96 06/24/25 17:39 36.2 C L 56 L 18 127/77 97 06/24/25 15:14 06/24/25 12:23 36.4 C L 56 L 18 123/82 96 06/24/25 10:39 70 17 126/79 O2 Del Method 06/25/25 07:41 Room Air 06/25/25 07:31 Room Air 06/25/25 03:37 06/25/25 02:07 06/25/25 02:00 06/25/25 01:42 Room Air 06/24/25 22:58 Room Air 06/24/25 22:40 06/24/25 20:30 Room Air 06/24/25 20:16 Room Air 06/24/25 17:39 Room Air 06/24/25 15:14 Room Air 06/24/25 12:23 Room Air 06/24/25 10:39 Recovery Score Activity: Moves 4 extremities Respiration: Deep Breath/Cough Circulation: +/-20% PreAnes Value Consciousness: Fully Awake Oxygen Saturation: > 92% On Room Air Post Anesthesia Score: 10 Discharge Sedation Level of Care: Fast Track Phase II Post Sedation Plan On clinical assessment, the patient appears to have tolerated the sedation without complications. Patient is recovering as anticipated. Patient will continue to be monitored by nursing and may be discharged when sedation discharge criteria are met per below protocol. Upon Completions of procedure up to 15 minutes continue every 5 minute vital signs and the P.A.R. score; then discharge to a Phase I or Fast Track to Phase II per the following guidelines: * Discharge Patient to appropriate Phase II area if PAR is 8 or greater or return to pre- procedure baseline. The post - procedure orders will be as directed. * If PAR score is less than 8 or not return to pre-procedure baseline then patient will follow Phase I monitoring till PAR is reached for Phase II. The Phase I may be done in procedure room or may call to secure a Phase I area. * If naloxone or flumazenil are used for reversal, hold in Phase I for continued monitoring from when last reversal dose was given for a minimum of 60 minutes or longer pending the nurse and/or physician discretion of patient condition before discharge to Phase II. Please call the Sedation Physician to re-evaluate and complete post-note for discharge to Phase II area. Do NOT discharge from procedure sedation or Phase 1 until post- sedation evaluation note is complete by procedure /sedation MD Sedation Discharge Instructions to be given to the patient at discharge to home.
[2025-06-25] MEDS: IODIXANOL (VISIPAQUE) 320 MG/ML 100ML IV ONE (09:28)
--- NOTE | 2025-06-25 10:56 | Electrocardiogram Report ---
Test Reason : Blood Pressure : */* mmHG Vent. Rate : 54 BPM Atrial Rate : 54 BPM P-R Int : 160 ms QRS Dur : 88 ms QT Int : 448 ms P-R-T Axes : -13 8 -22 degrees QTcB Int : 424 ms Sinus bradycardia Minimal voltage criteria for LVH, may be normal variant Nonspecific ST and T wave abnormality Abnormal ECG When compared with ECG of 23-Jun-2025 10:39, Nonspecific T wave abnormality, worse in Lateral leads Confirmed by Vimal Tyler ([id number]) on 06/25/2025 10:56:10 AM Referred By: REFERRED SELF Confirmed By: Vimal Tyler
--- NOTE | 2025-06-25 11:01 | Electrocardiogram Report ---
Test Reason : Blood Pressure : */* mmHG Vent. Rate : 62 BPM Atrial Rate : 62 BPM P-R Int : 188 ms QRS Dur : 88 ms QT Int : 434 ms P-R-T Axes : 64 2 -51 degrees QTcB Int : 440 ms Normal sinus rhythm Left ventricular hypertrophy with repolarization abnormality Abnormal ECG When compared with ECG of 25-Jun-2025 01:48, (unconfirmed) Nonspecific T wave abnormality, improved in Lateral leads Confirmed by Vimal Tyler ([id number]) on 06/25/2025 11:00:34 AM Referred By: REFERRED SELF Confirmed By: Vimal Tyler
--- NOTE | 2025-06-25 11:23 | Cardiac Catheterization ---
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 Culprit Artery: No (Not for non-ST elevation [place]) Stenosis Prior to Rx (%): 90% Chronic Total Occlusion: No Pre-Procedure TANK Flow: 3 Previously Treated Lesion: No Lesion Complexity: Non-High/Non-C Lesion Length (mm): 26 mm Thrombus Present: No Bifurcation Lesion: Yes Guidewire Across Lesion: Yes Intraprocedure Events Significant Disection: No Perforation: No Cardiac Cath Procedure Full Procedure Date June 25, 2025 Pre-Procedure Diagnosis Pre-Procedure Diagnosis: Non STEMI AUC Score AUC Score: 07 Post-Procedure Diagnosis Post-Procedure Diagnosis: Severe CAD and Successful PCI Procedure(s) Performed Procedure(s) Performed: Coronary Angiography, Drug Eluting Stent and Ultrasound Guided Vascular Access Town Clerk Luis Rosario MD, PhD Estimated Blood Loss Estimated Blood Loss: 5 cc Medication(s) Medication(s): Fentanyl, Heparin, Lidocaine 1% and Versed Summary of Findings Brief description: Patient was brought to the cardiac catheterization suite where he was shaved and prepped in a sterile fashion. Sedated using IV Versed and fentanyl. Soft tissues of the right groin were anesthetized using 10 mL of 1% Xylocaine. Using the ultrasound for guidance (image saved), the right femoral artery was accessed and a 6 Azerbaijani femoral artery sheath was placed. All catheters were advanced and exchanged over a 0.035 J-tip wire. Left coronary angiography performed with 6 Azerbaij[place] EBU 3.5 guide catheter. Patient was provided IV heparin. ACT was checked and additional heparin provided as needed to maintain therapeutic anticoagulation. A 6 [place] EBU 3.5 guide catheter was advanced over the J-wire and used to engage the left main coronary. Angiography performed to utilize as a roadmap. A BMW reversal guidewire was advanced through the guide catheter and positioned distally in the LAD. The LAD lesion was predilated with a 2.5 x 20 millimeter trek balloon at 14 anne-marie A 2.75 x 28 mm Xience [place] drug-eluting stent was advanced and positioned across the lesion where it was deployed at 18 anne-marie. Stent balloon removed. Research Physicist angiography performed. Proximal and midportion of the stent was postdilated with a 3.0 x 12 mm NC Christiano balloon at 18 anne-marie. Balloon removed. Research Physicist angiography performed. A 3.0 x 8 mm [place] LANG positioned with its distal edge within the proximal portion of the first stent and deployed at 19 anne-marie. Balloon was deflated and positioned across the overlap portion where it was postdilated at 16 anne-marie. Send balloon was removed and ese teacher angiography performed with the guidewire in place. Guidewire was removed and final angiographic evaluation was performed. Guide catheter was then removed. Right coronary angiography was performed with a 5 Azerbaijani JR4 diagnostic catheter. Catheter was removed. Limited right femoral artery angiography was performed to evaluate for closure. Findings were favorable, therefore, the femoral artery sheath was removed and exchanged for a 6 [place] Angio-Seal closure device. This was deployed in the recommended fashion. We obtained immediate hemostasis and the patient remained hemodynamically stable. He was returned to the recovery area in stable condition. This ended the case. Coronary angiography findings: LMT-mild luminal irregularities (unchanged) LAD-late proximal to early distal 85-90% stenosis. TANK-3 flow. D1, D2, and D3 are unchanged from diagnostic. LCx-small OM1, medium OM 2, OM 3, and distal AV groove vessel are unchanged from diagnostic. RCA-proximal through mid stent training is widely patent. Noted newly on today's Is most distal stent edge of the stent trained does not overlap with the distal stent. Small uncovered segment of 1 to 2 mm. This was not appreciated on prior study secondary to different angle on angiography as well as tortuosity in that segment. TANK-3 flow. PCI findings: 0% residual stenosis post PCI TNAK-3 flow post PCI No evidence of dissection or perforation post PCI Summary: 1. Successful staged PCI of the LAD using 2 overlapped drug-eluting stents. No complications. Good angiographic results. 2. Continue dual antiplatelet therapy with aspirin and Brilinta for 1 to 2 years. Consider indefinite treatment given the extent of stenting. 3. Guideline directed medical therapy for secondary prevention of coronary artery disease as per primary cardiology team. 4. Recent RCA stenting remains widely patent. Current angiography demonstrates small gap between the most distal stent and the distal edge of the stent train. Hemodynamics Rest Ao:: 138/62 mmHg Final Ao: 180/75 mmHg LV: Not performed Recommendations Recommendations: Medical Therapy and/or Counseling and PCI without planned CABG Radiation Exposure (mGy) 924 mGy, fluoroscopy time 10.5 minutes Contrast (mls) 135 cc Anesthesia 2 mg Versed, 75 mcg fentanyl. Start 0853, end 09 Procedural Complication(s) None Disposition Warehouse Coordinator Holding/Recovery I attest to the content of the Intraoperative Record and any orders documented therein. Any exceptions are noted below. [facility] Card Cath Procedure Codes Cardiac Catheterization Procedure 1: Cardiovascular Cath Procedures: 09555 Coronaries Therapeutic Services & Ancillary Procedure 1: Cardiovascular Tx and Anc Procedures: 24166 Ultrasonic Guidance Vascular Access Moderate Sedation Procedure 1: Sedation/Anesthesia: 37140 Mod Sedation by the same physician;Init15 Min Child Age 5 & Up (Initial 15 minutes, start time 0853) Procedure 2: Sedation/Anesthesia: 20469 Mod Sedation by the same physician; Ea [id number] Minutes (Additional 17 minutes, end time 924) Stenting Procedure 1: Cardiovascular Stent Procedures: 39509 Perc transcatheter placement of intracoronary stent(s), with ang (LAD) PG Care Time/CCT Total # of Minutes Spent Total Time Spent with Patient: Total time spent is greater than 50% in coordination of care (as documented) at patient's floor/unit and/or counseling patient:
[2025-06-25] MEDS: VANCOMYCIN HCL 125 MG CAP PO SCH (11:38)
--- NOTE | 2025-06-25 11:58 | Hospitalist Progress Note ---
Date of Service June 25, 2025 Assessment & Plan (1) Acute non-ST elevation myocardial infarction (NSTEMI): Plan: 69-year-old man who goes to [facility] with past medical history significant for hypertension, hyperlipidemia, BPH, chronic headaches, depression and anxiety and ongoing tobacco abuse presents with chest pain started a few nights ago radiating to both arms initially and later the pain was located in the middle of the chest which lasted for about 20 minutes and elevated BP. Non-ST elevated NC EKG noted TWI in III Initial troponin 339->>>415->360->>>456->438 Got aspirin and started on IV heparin in the ER TTE noted EF 55-60%, mild hypokinesis of basal inferoseptal wall and inferior wall, mild MR Was initially on hep gtt, now off after cath S/p Cardiac cath on 06/23/25 Patient has severe multivessel CAD. Severe LAD stenosis and RCA stenosis with the RCA being the culprit lesion Got complex PCI of RCA with 4 overlapping LANG Planned for staged PCI of LAD tomorrow NPO PMN tonight Continue ASA 81mg and brilinta Continue atorvastatin Slasher Tender on board 06/25 s/p Successful staged PCI of the LAD using 2 overlapped drug-eluting stents by Dr. Rosario recommendations: Continue dual antiplatelet therapy with aspirin and Brilinta for 1 to 2 years. Consider indefinite treatment given the extent of stenting. Guideline directed medical therapy for secondary prevention of coronary artery disease as per primary cardiology team. Recent RCA stenting remains widely patent. Current angiography demonstrates small gap between the most distal stent and the distal edge of the stent train. Diarrhea C diff gene positive, toxin negative Vanco PO started due to profuse diarrhea no diarrhea this AM so far History of hypertension On propranolol Continue losartan continue to monitor closely Hyperlipidemia Atorvastatin was increased to 80 mg daily on admission BPH On Flomax Depression/anxiety Continue current psych meds Denied SI/HI Patient discussed with psych liason Possible Chronic kidney disease Patient does not know his baseline creatinine Cr of 1.59 on admission Cr is 1.37 today--> 1.5 repeat BMP tomorrow DM Recently started on Jardiance as per patient. Holding for now as patient may need procedure HbA1c 6.2 ISS for now Chronic back pain DVT prophylaxis -SCDs Full code. Disposition admitted to PCU lives at home Admission and Anticipated Discharge Date Admission Date: June 20, 2025 Subjective seen resting in bed, comfortable s/p staged PCI today feels tired, sore but no chest pain, shortness of breath, dizziness so far no abdominal pain, nausea diarrhea resolved no other symptoms Review of Systems Review of Systems: all noted and negative except for above Physical Exam Physical Exam: General- oriented x 3, not in distress, speaks in sentences with no effort or accessory muscle use Eyes- anicteric Neck- no JVD Lungs- clear breath sounds bilaterally, no rales/wheezes Heart- normal rate, regular rhythm; no murmurs Abdomen- normal bowel sounds, nondistended, soft, nontender R inguinal region: no hematoma, bleeding, edema Extremities- no pretibial edema, no calf tenderness Neuro- alert, oriented x 3; no gross focal neurologic deficits Skin- warm & dry Results & Data Results & Data Vital Signs (Past 12 Hours) Vital Signs Temp Pulse Pulse Resp BP BP Pulse Ox 06/25/25 11:25 36.6 C 60 15 157/87 H 97 06/25/25 11:10 62 18 156/52 H 98 06/25/25 10:53 56 L 18 165/94 H 97 06/25/25 10:38 56 L 18 143/75 H 99 06/25/25 10:31 56 L 06/25/25 10:27 06/25/25 10:24 36.6 C 53 L 18 168/82 H 100 06/25/25 10:00 59 L 18 174/86 H 97 06/25/25 09:45 59 L 18 169/80 H 98 06/25/25 07:41 56 L 22 175/86 H 99 06/25/25 07:31 56 L 22 175/86 H 99 06/25/25 03:37 145/75 H 06/25/25 02:07 63 93/60 L 06/25/25 02:00 82 69/33 L 06/25/25 01:42 55 L 160/82 H 97 O2 Del Method 06/25/25 11:25 Room Air 06/25/25 11:10 Room Air 06/25/25 10:53 Room Air 06/25/25 10:38 Room Air 06/25/25 10:31 06/25/25 10:27 Room Air 06/25/25 10:24 Room Air 06/25/25 10:00 Room Air 06/25/25 09:45 Room Air 06/25/25 07:41 Room Air 06/25/25 07:31 Room Air 06/25/25 03:37 06/25/25 02:07 06/25/25 02:00 06/25/25 01:42 Room Air all noted and reviewed including below
--- NOTE | 2025-06-25 17:13 | Cardiology Progress Note ---
Date of Service June 25, 2025 Assessment & Plan (1) Acute non-ST elevation myocardial infarction (NSTEMI): (2) Chest pain: (3) Hypertension: (4) Dyslipidemia: Plan Assessment: 69 year old male with PMHx significant for HTN, HLD and family history of premature CAD that presented to the ER with complaints of chest pain radiating to bilateral arms and back for several hours. Little to no relief with ASA, current anti-hypertensives and Pepto-bismol. EKG with no acute ST e levation, but T wave inversion in inferior leads. Troponin with modest elevation, peaked and then trend down. Cardiology consulted for further evaluation. CAD s/p LANG of mid RCA S/P staged PCI of LAD NSTEMI HTN Dyslipidemia Recommendations: correct and f/u electrolytes f/u renal function continue DAPT continue Lipitor continue propranolol continue Losartan adjust anti-HTN meds keeping systolic BP between 100-140 mmHg avoid hypovolemia keep patient euvolemic DVT prophylaxis strict I&Os salt restriction counseling Admission and Anticipated Discharge Date Admission Date: June 20, 2025 Subjective Patient on exam is lying in bed in NAD; no c/o cp, sob, palpitations, dizziness s/p staged PCI today Review of Systems Review of Systems: as per hpi Physical Exam Constitutional: well developed; no acute distress Eyes: anicteric sclerae, pink conjunctiva Neck: normal visual inspection and trachea midline Respiratory: normal respiratory effort, lungs clear to auscultation Cardiovascular: Heart Sounds: normal S1 and normal S2 Vessels: dorsalis pedis pulses present and radial pulses present; no JVD Extremities: no edema Gastrointestinal (Abdomen): soft, NT, BS+, no HSM Skin: no rashes, warm and dry Psychiatric: A+Ox3, euthymic affect Results & Data Vital Signs (Past 12 Hours) Vital Signs Temp Pulse Pulse Resp BP BP Pulse Ox 06/25/25 16:35 58 L 18 124/72 97 06/25/25 15:38 36.6 C 80 18 165/91 H 95 06/25/25 15:24 36.7 C 60 18 124/76 100 06/25/25 15:15 06/25/25 14:00 64 16 138/60 95 06/25/25 13:00 62 16 115/71 95 06/25/25 12:30 62 16 156/82 H 96 06/25/25 12:10 60 06/25/25 12:00 60 14 159/94 H 97 06/25/25 11:25 36.6 C 60 15 157/87 H 97 06/25/25 11:10 62 18 156/52 H 98 06/25/25 10:53 56 L 18 165/94 H 97 06/25/25 10:38 56 L 18 143/75 H 99 06/25/25 10:31 56 L 06/25/25 10:27 06/25/25 10:24 36.6 C 53 L 18 168/82 H 100 06/25/25 10:00 59 L 18 174/86 H 97 06/25/25 09:45 59 L 18 169/80 H 98 06/25/25 07:41 56 L 22 175/86 H 99 06/25/25 07:31 56 L 22 175/86 H 99 O2 Del Method 06/25/25 16:35 Room Air 06/25/25 15:38 Room Air 06/25/25 15:24 Room Air 06/25/25 15:15 Room Air 06/25/25 14:00 Room Air 06/25/25 13:00 Room Air 06/25/25 12:30 Room Air 06/25/25 12:10 06/25/25 12:00 Room Air 06/25/25 11:25 Room Air 06/25/25 11:10 Room Air 06/25/25 10:53 Room Air 06/25/25 10:38 Room Air 06/25/25 10:31 06/25/25 10:27 Room Air 06/25/25 10:24 Room Air 06/25/25 10:00 Room Air 06/25/25 09:45 Room Air 06/25/25 07:41 Room Air 06/25/25 07:31 Room Air Laboratory Results Laboratory Results WBC 11.82 K/ul (4.8-10.8) H 06/25/25 05:27 RBC 4.28 M/uL (4.70-6.10) L 06/25/25 05:27 Hgb 13.2 g/dL (14.0-18.0) L 06/25/25 05:27 Hct 38.0 % (42.0-52.0) L 06/25/25 05:27 MCV 88.8 fL (80.0-100.0) 06/25/25 05:27 MCH 30.8 pg (25.0-34.0) 06/25/25 05:27 MCHC 34.7 g/dL (32.0-36.0) 06/25/25 05:27 RDW Std Deviation 45.5 fL (36.4-46.3) 06/25/25 05:27 RDW Coeff of Misha 14.1 % (11.5-14.5) 06/25/25 05:27 Plt Count 154 K/uL (130-400) 06/25/25 05:27 MPV 9.4 fL (9.4-12.4) 06/25/25 05:27 Immature Gran % (Auto) 0.3 % 06/21/25 01:57 Neut % (Auto) 60.5 % 06/21/25 01:57 Lymph % (Auto) 24.6 % 06/21/25 01:57 Lyman % (Auto) 10.8 % 06/21/25 01:57 Eos % (Auto) 3.0 % 06/21/25 01:57 Baso % (Auto) 0.8 % 06/21/25 01:57 Neut # (Auto) 6.25 K/uL (1.40-6.50) 06/21/25 01:57 Lymph # (Auto) 2.54 K/uL (1.20-3.40) 06/21/25 01:57 Lyman # (Auto) 1.12 K/uL (0.11-0.59) H 06/21/25 01:57 Eos # (Auto) 0.31 K/uL (0.00-0.50) 06/21/25 01:57 Baso # (Auto) 0.08 K/uL (0.00-0.20) 06/21/25 01:57 Immature Gran # (Auto) 0.03 K/uL (0.01-0.20) 06/21/25 01:57 PT 10.5 Seconds (9.0-12.0) 06/20/25 17:33 INR 1.0 (0.9-1.1) 06/20/25 17:33 APTT 30 Seconds (21-31) 06/20/25 17:33 PTT Ratio 1.1 06/20/25 17:33 Activ Coag Time Kaolin 307 SECONDS (94-140) H 06/23/25 10:03 D-Dimer 300 ug/L FEU (0-500) 06/21/25 16:41 Heparin Anti-Xa, Unfract < 0.10 IU/ml (0.3-0.7) L 06/24/25 05:31 Sodium 139 mmol/L (136-145) 06/25/25 05:27 Potassium 3.5 mmol/L (3.5-5.1) 06/25/25 05:27 Chloride 112 mmol/L (98-107) H 06/25/25 05:27 Carbon Dioxide 19 mmol/L (21-32) L 06/25/25 05:27 Anion Gap 8 (3-11) 06/25/25 05:27 BUN 20 mg/dl (6-23) 06/25/25 05:27 Creatinine 1.50 mg/dl (0.6-1.4) H 06/25/25 05:27 Est Cr Clr Drug Dosing 49.5 ml/min 06/25/25 05:27 eGFR 50.08 06/25/25 05:27 BUN/Creatinine Ratio 13.3 (10-20) 06/25/25 05:27 Glucose 111 mg/dl (70-99(Fasting)) H 06/25/25 05:27 POC Glucose 121 mg/dl (70-99) H 06/25/25 17:07 Estimat Average Glucose 131 mg/dl 06/21/25 01:57 Hemoglobin A1c 6.2 % (4.5-5.6) H 06/21/25 01:57 Calcium 8.9 mg/dl (8.6-10.3) 06/25/25 05:27 Phosphorus 3.0 mg/dl (2.5-4.9) 06/25/25 05:27 Magnesium 2.0 mg/dl (1.7-2.4) 06/25/25 05:27 Total Bilirubin 0.8 mg/dl (0.2-1.0) 06/20/25 17:33 AST 19 U/L (13-39) 06/20/25 17:33 ALT 14 U/L (7-52) 06/20/25 17:33 Alkaline Phosphatase 91 U/L (34-104) 06/20/25 17:33 Troponin I High Sens 1241.9 pg/ml (0-20) H* 06/25/25 10:36 Total Protein 7.0 gm/dl (6.0-8.3) 06/20/25 17:33 Albumin 4.3 gm/dl (3.4-5.0) 06/20/25 17:33 Globulin 2.7 gm/dl (2.5-4.0) 06/20/25 17:33 Albumin/Globulin Ratio 1.6 (0.9-2) 06/20/25 17:33 Triglycerides 65 mg/dl (0-150) 06/21/25 01:57 Cholesterol 94 mg/dl (0-200) 06/21/25 01:57 LDL Cholesterol, Calc 52 mg/dl 06/21/25 01:57 VLDL Cholesterol, Calc 13 mg/dl (0-30) 06/21/25 01:57 HDL Cholesterol 29 mg/dl 06/21/25 01:57 Cholesterol/HDL Ratio 3.2 (0-5) 06/21/25 01:57 Stl C. diff Tox B Gene Positive Cdiff Gene (Neg) A 06/25/25 02:29 Stl C.difficile Tox A&B Negative Cdiff Toxin (Negative) 06/25/25 02:29 Stl C. diff [id number] NEGATIVE 06/25/25 02:29 Impressions Chest X-Ray 06/20/25 17:25 Single frontal view of the chest No comparison Impression No acute pulmonary pathology Electronically signed by Jaime Deras 06-20-2025 7:42 PM Diagnostic Findings Cardiac Enzymes 06/25/25 06/25/25 Range/Units 05:27 10:36 Troponin I High Sens 1363.3 H* 1241.9 H* (0-20) pg/ml CBC 06/25/25 Range/Units 05:27 WBC 11.82 H (4.8-10.8) K/ul RBC 4.28 L (4.70-6.10) M/uL Hgb 13.2 L (14.0-18.0) g/dL Hct 38.0 L (42.0-52.0) % Plt Count 154 (130-400) K/uL Comprehensive Metabolic Panel 06/25/25 Range/Units 05:27 Sodium 139 (136-145) mmol/L Potassium 3.5 (3.5-5.1) mmol/L Chloride 112 H (98-107) mmol/L Carbon Dioxide 19 L (21-32) mmol/L BUN 20 (6-23) mg/dl Creatinine 1.50 H (0.6-1.4) mg/dl Glucose 111 H (70-99(Fasting)) mg/dl Calcium 8.9 (8.6-10.3) mg/dl Intake and Output 06/25/25 06/25/25 06/25/25 06:59 14:59 22:59 Intake Total 500 / 1921.95 492.000 / 612.000 120 / 612.000 Output Total 300 / 300 Balance 496 / 1913.95 492.000 / 312.000 -180 / 312.000 Intake: IV 500 / 711.95 392.000 / 392.000 Sodium Chloride 0.9% 1,000 ml @ 500 / 500 392.000 / 392.000 80 mls/hr IV .[id number] [facility] Rx#: [id number] Oral 100 / 220 120 / 220 Output: Urine 300 / 300 # Bowel Movements Other: Other Intake Source NPO # Unmeasured Voids 1 Weight 83 kg Weight Measurement Method Built in [facility] Medications Administered Home Medications Medication Instructions Recorded Confirmed Last Taken alprazolam 0.25 mg tablet (Xanax) 0.25 mg PO TID PRN Anxiety 06/20/25 06/20/25 Unknown atorvastatin 40 mg tablet 20 mg PO DAILY 06/20/25 06/20/25 Unknown cetirizine 10 mg tablet 10 mg PO DAILY 06/20/25 06/20/25 Unknown magnesium oxide 420 mg tablet 420 mg PO DAILY 06/20/25 06/20/25 Unknown propranolol 120 mg capsule,24 120 mg PO DAILY 06/20/25 06/20/25 Unknown hr,extended release tamsulosin 0.4 mg capsule 0.4 mg PO DAILY 06/20/25 06/20/25 Unknown topiramate 50 mg tablet 50 mg PO BID Headache 06/20/25 06/21/25 Unknown venlafaxine 150 mg 300 mg PO DAILY 06/20/25 06/21/25 Unknown capsule,extended release 24 hr empagliflozin 25 mg tablet 12.5 mg PO DAILY 06/21/25 06/21/25 Unknown fluticasone propionate 50 2 spray intranasal DAILY 06/21/25 06/21/25 Unknown mcg/actuation nasal spray,suspension losartan 50 mg tablet 50 mg PO DAILY 06/21/25 06/21/25 Unknown pantoprazole 40 mg tablet,delayed 40 mg PO DAILY 06/21/25 06/21/25 Unknown release atorvastatin 40 mg tablet 80 mg (2 x 40 mg) PO QAM #90 tabs 06/25/25 Unknown ticagrelor 90 mg tablet (Brilinta) 90 mg PO BID #180 tabs 06/25/25 Unknown Active Medications Generic Name Dose Route Start Last Admin Trade Name Freq PRN Reason Stop Dose Admin Acetaminophen 650 mg 06/20/25 22:21 06/23/25 11:31 Acetaminophen 325 Mg Tab PO 07/20/25 22:20 650 mg Q4H PRN Administration Pain or Fever Alprazolam 0.25 mg 06/20/25 23:34 06/25/25 17:10 Alprazolam 0.25 Mg Tablet PO 07/20/25 23:33 0.25 mg TID PRN Administration Anxiety Aspirin 81 mg 06/21/25 09:00 06/25/25 07:42 Aspirin 81 Mg Ectab PO 07/21/25 08:59 Not Given QAM JONEL Atorvastatin Calcium 80 mg 06/20/25 19:00 06/25/25 10:41 Atorvastatin 40 Mg Tab PO 07/20/25 18:59 80 mg QAM JONEL Administration Cetirizine HCl 10 mg 06/21/25 09:00 06/25/25 10:42 Cetirizine Hcl 10 Mg Tablet PO 07/21/25 08:59 10 mg DAILY JONEL Administration Sodium Chloride 1,000 mls @ 80 mls/hr 06/25/25 02:15 06/25/25 11:38 Nss IV 06/28/25 02:14 80 mls/hr .[id number] JONEL Administration Insulin Aspart 0 units 06/25/25 06:00 06/25/25 17:09 Insulin Aspart Per Unit Charge SC 07/25/25 05:59 Not Given Q6 JONEL Losartan Potassium 50 mg 06/22/25 09:00 06/25/25 10:43 Losartan Potassium 50 Mg Tab PO 07/22/25 08:59 50 mg QAM JONEL Administration Magnesium Oxide 400 mg 06/23/25 21:00 06/24/25 20:27 Magnesium Oxide 400 Mg Tab PO 07/23/25 20:59 400 mg HS JONEL Administration Nitroglycerin 0.4 mg 06/20/25 22:21 06/25/25 01:54 Nitroglycerin Sl 0.4 Mg/Tab Tab SL 07/20/25 22:20 0.4 mg Q5M PRN Administration Chest Pain Pantoprazole Sodium 40 mg 06/22/25 09:00 06/25/25 10:43 Pantoprazole 40 Mg Tab PO 07/22/25 08:59 40 mg QAM JONEL Administration Propranolol HCl 120 mg 06/21/25 09:00 06/25/25 10:42 Propranolol Hcl 60 Mg [place] PO 07/21/25 08:59 120 mg DAILY JONEL Administration Tamsulosin HCl 0.4 mg 06/21/25 09:00 06/25/25 10:42 Tamsulosin Hcl 0.4 Mg Cap PO 07/21/25 08:59 0.4 mg DAILY JONEL Administration Ticagrelor 90 mg 06/23/25 21:00 06/25/25 07:44 Ticagrelor 90 Mg Tab PO 07/23/25 20:59 90 mg BID JONEL Administration Topiramate 50 mg 06/21/25 21:00 06/25/25 10:41 Topiramate 50 Mg Tab PO 07/21/25 20:59 50 mg BID JONEL Administration Vancomycin HCl 125 mg 06/25/25 12:00 06/25/25 17:10 Vancomycin Hcl 125 Mg Cap PO 07/05/25 11:59 125 mg Q6 JONEL Administration Venlafaxine HCl 300 mg 06/22/25 09:00 06/25/25 10:42 Venlafaxine Hcl Xr 150 Mg Capxr PO 07/22/25 08:59 300 mg DAILY JONEL Administration PG Care Time/CCT Total # of Minutes Spent Total Time Spent with Patient: Total time spent is greater than 50% in coordination of care (as documented) at patient's floor/unit and/or counseling patient: Coding Level of Care Code 49053 SUB INP/OBS CARE 3/50MIN Diagnoses Acute non-ST elevation myocardial infarction (NSTEMI) I21.4 Chest pain R07.9 Hypertension I10 Dyslipidemia E78.5
[2025-06-26 09:49] LABS: Hematocrit (blood only) 36.2 % (42.0-52.0); Hemoglobin 12.4 g/dL (14.0-18.0); Immature Granulocytes # (auto) 0.03 K/uL (0.01-0.20); Immature Granulocytes % (auto) 0.3 %; Mean Corpuscular Hemoglobin 30.5 pg (25.0-34.0); Mean Corpuscular Volume 89.2 fL (80.0-100.0); Platelet Count 138 K/uL (130-400); RDW Standard Deviation 46.0 fL (36.4-46.3); Red Blood Count 4.06 M/uL (4.70-6.10); White Blood Count 9.71 K/ul (4.8-10.8)
[2025-06-26 09:55] LABS: Alanine Aminotransferase 32.0 U/L (7-52); Albumin Globulin Ratio 1.7 (0.9-2); Albumin Level 3.6 gm/dl (3.4-5.0); Alkaline Phosphatase 76.0 U/L (34-104); Anion Gap 10.0 (3-11); Bilirubin,Total 0.8 mg/dl (0.2-1.0); Blood Urea Nitrogen 16.0 mg/dl (6-23); Calcium 8.4 mg/dl (8.6-10.3); Carbon Dioxide 17.0 mmol/L (21-32); Chloride 113.0 mmol/L (98-107); Creatinine Clr Calc Pharmacy 59.9 ml/min; Globulin 2.1 gm/dl (2.5-4.0); Glucose 101.0 mg/dl (70-99(Fasting)); Magnesium 2.1 mg/dl (1.7-2.4); Potassium 3.5 mmol/L (3.5-5.1); Sodium 140.0 mmol/L (136-145); Total Protein 5.7 gm/dl (6.0-8.3)
[2025-06-26] MEDS: SODIUM CHLORIDE 0.65% NA SOLN 45 ML (OCEAN) PRN (13:55)
--- NOTE | 2025-06-26 15:36 | Hospitalist Progress Note ---
Date of Service June 26, 2025 Assessment & Plan (1) Acute non-ST elevation myocardial infarction (NSTEMI): Plan: 69-year-old man who goes to [facility] with past medical history significant for hypertension, hyperlipidemia, BPH, chronic headaches, depression and anxiety and ongoing tobacco abuse presents with chest pain started a few nights ago radiating to both arms initially and later the pain was located in the middle of the chest which lasted for about 20 minutes and elevated BP. Non-ST elevated MS EKG noted TWI in III Initial troponin 339->>>415->360->>>456->438 Got aspirin and started on IV heparin in the ER TTE noted EF 55-60%, mild hypokinesis of basal inferoseptal wall and inferior wall, mild MR Was initially on hep gtt, now off after cath S/p Cardiac cath on 06/23/25 Patient has severe multivessel CAD. 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 Rosario recommendations: Continue dual antiplatelet therapy with aspirin and Brilinta for 1 to 2 years. Consider indefinite treatment given the extent of stenting. Guideline directed medical therapy for secondary prevention of coronary artery disease as per primary cardiology team. Recent RCA stenting remains widely patent. Current angiography demonstrates small gap between the most distal stent and the distal edge of the stent train. 06/26 chest pain free BP ok, HR in the 50s continue Aspirin, Brillinta, Propranolol Diarrhea C diff gene positive, toxin negative Vanco PO started due to profuse diarrhea - diarrhea resolved complete course of vancomycin PO History of hypertension On propranolol Continue losartan continue to monitor closely Hyperlipidemia Atorvastatin was increased to 80 mg daily on admission BPH On Flomax Depression/anxiety Continue current psych meds Denied SI/HI Patient discussed with psych liason Possible Chronic kidney disease Patient does not know his baseline creatinine Cr of 1.59 on admission Cr is 1.37 today--> 1.5 repeat BMP tomorrow--> 1.2 DM Recently started on Jardiance as per patient. Holding for now as patient may need procedure HbA1c 6.2 ISS for now Chronic back pain PT/OT evaluation today DVT prophylaxis -SCDs Full code. Disposition admitted to PCU lives at home Admission and Anticipated Discharge Date Admission Date: June 20, 2025 Subjective seen resting in bed, comfortable states he feels improved compared to yesterday no chest pain, shortness of breath, dizziness diarrhea resolved, no abdominal pain, nausea no other symptoms Review of Systems Review of Systems: all noted and negative except for above Physical Exam Physical Exam: General- oriented x 3, not in distress, speaks in sentences with no effort or accessory muscle use Eyes- anicteric Neck- no JVD Lungs- clear breath sounds bilaterally, no rales/wheezes Heart- normal rate, regular rhythm; no murmurs Abdomen- normal bowel sounds, nondistended, soft, nontender Extremities- no pretibial edema, no calf tenderness Neuro- alert, oriented x 3; no gross focal neurologic deficits Skin- warm & dry Results & Data Results & Data Vital Signs (Past 12 Hours) Vital Signs Temp Pulse Pulse Resp BP Pulse Ox O2 Del Method 06/26/25 13:37 52 L 06/26/25 10:00 Room Air 06/26/25 07:51 36.5 C 55 L 17 145/79 H 96 Room Air 06/26/25 05:37 55 L 06/26/25 03:40 36.5 C 59 L 18 138/68 97 Room Air all noted and reviewed including below
--- NOTE | 2025-06-26 16:25 | Cardiology Progress Note ---
Date of Service June 26, 2025 Assessment & Plan (1) Acute non-ST elevation myocardial infarction (NSTEMI): (2) Chest pain: (3) Hypertension: (4) Dyslipidemia: Plan Assessment: 69 year old male with PMHx significant for HTN, HLD and family history of premature CAD that presented to the ER with complaints of chest pain radiating to bilateral arms and back for several hours. Little to no relief with ASA, current anti-hypertensives and Pepto-bismol. EKG with no acute ST e levation, but T wave inversion in inferior leads. Troponin with modest elevation, peaked and then trend down. Cardiology consulted for further evaluation. CAD s/p LANG of mid RCA S/P staged PCI of LAD NSTEMI HTN Dyslipidemia Renal Insufficiency - improved Recommendations: correct and f/u electrolytes f/u renal function continue DAPT > will change Brilinta to Plavix from tomorrow AM due to patient's symptoms after taking Brilinta continue Lipitor continue propranolol continue Losartan DC IVF adjust anti-HTN meds keeping systolic BP between 100-140 mmHg avoid hypovolemia keep patient euvolemic DVT prophylaxis salt restriction counseling Admission and Anticipated Discharge Date Admission Date: June 20, 2025 Subjective Patient on exam is lying in bed in NAD; no c/o cp, sob, palpitations, dizziness, LOC, cough, fever, nausea, vomiting, abdominal pain, urinary or bowel problem problems s/p PCI of RCA and staged PCI of LAD patient with mild sob after being give Brilinta as per speech pathology assistant of Systems Review of Systems: as per hpi Physical Exam Constitutional: well developed; no acute distress Neck: normal visual inspection and trachea midline Respiratory: normal respiratory effort, lungs clear to auscultation Cardiovascular: Heart Sounds: normal S1 and normal S2 Vessels: dorsalis pedis pulses present and radial pulses present; no JVD Extremities: no edema Skin: no rashes, warm and dry Psychiatric: A+Ox3, euthymic affect Results & Data Vital Signs (Past 12 Hours) Vital Signs Temp 36.5 C 06/26/25 07:51 Pulse 52 L 06/26/25 13:37 Resp 17 06/26/25 07:51 BP 145/79 H 06/26/25 07:51 Pulse Ox 96 06/26/25 07:51 O2 Del Method Room Air 06/26/25 10:00 Intake & Output 06/25/25 06/26/25 06/26/25 18:59 06:59 18:59 Intake Total 852.000 / 2324.000 1472 / 2324.000 1008.667 / 1008.667 Output Total 300 / 401 101 / 401 Balance 552.000 / 2699.742 8158 / 1137.693 9911.667 / 1008.667 Weight 80.9 kg Intake: IV 392.000 / 0714.514 3514 / 1392.000 558.667 / 558.667 Sodium Chloride 0.9% 1,000 ml @ 392.000 / 0075.734 4521 / 1392.000 558.667 / 558.667 80 mls/hr IV .[id number] [facility] Rx#: [id number] Oral 460 / 932 472 / 932 450 / 450 Output: Urine 300 / 400 100 / 400 # Bowel Movements Other: # Unmeasured Voids 1 Weight Measurement Method Standing Scale Vital Signs Temp Pulse Pulse Resp BP Pulse Ox O2 Del Method 06/26/25 13:37 52 L 06/26/25 10:00 Room Air 06/26/25 07:51 36.5 C 55 L 17 145/79 H 96 Room Air 06/26/25 05:37 55 L Laboratory Results Laboratory Results WBC 9.71 K/ul (4.8-10.8) 06/26/25 09:23 RBC 4.06 M/uL (4.70-6.10) L 06/26/25 09:23 Hgb 12.4 g/dL (14.0-18.0) L 06/26/25 09:23 Hct 36.2 % (42.0-52.0) L 06/26/25 09:23 MCV 89.2 fL (80.0-100.0) 06/26/25 09:23 MCH 30.5 pg (25.0-34.0) 06/26/25 09:23 MCHC 34.3 g/dL (32.0-36.0) 06/26/25 09:23 RDW Std Deviation 46.0 fL (36.4-46.3) 06/26/25 09:23 RDW Coeff of Misha 14.2 % (11.5-14.5) 06/26/25 09:23 Plt Count 138 K/uL (130-400) 06/26/25 09:23 MPV 9.7 fL (9.4-12.4) 06/26/25 09:23 Immature Gran % (Auto) 0.3 % 06/26/25 09:23 Neut % (Auto) 69.5 % 06/26/25 09:23 Lymph % (Auto) 17.0 % 06/26/25 09:23 [place] % (Auto) 9.4 % 06/26/25 09:23 Eos % (Auto) 3.3 % 06/26/25 09:23 Baso % (Auto) 0.5 % 06/26/25 09:23 Neut # (Auto) 6.75 K/uL (1.40-6.50) H 06/26/25 09:23 Lymph # (Auto) 1.65 K/uL (1.20-3.40) 06/26/25 09:23 [place] # (Auto) 0.91 K/uL (0.11-0.59) H 06/26/25 09:23 Eos # (Auto) 0.32 K/uL (0.00-0.50) 06/26/25 09:23 Baso # (Auto) 0.05 K/uL (0.00-0.20) 06/26/25 09:23 Immature Gran # (Auto) 0.03 K/uL (0.01-0.20) 06/26/25 09:23 PT 10.5 Seconds (9.0-12.0) 06/20/25 17:33 INR 1.0 (0.9-1.1) 06/20/25 17:33 APTT 30 Seconds (21-31) 06/20/25 17:33 PTT Ratio 1.1 06/20/25 17:33 Activ Coag Time Kaolin 307 SECONDS (94-140) H 06/23/25 10:03 D-Dimer 300 ug/L FEU (0-500) 06/21/25 16:41 Heparin Anti-Xa, Unfract < 0.10 IU/ml (0.3-0.7) L 06/24/25 05:31 Sodium 140 mmol/L (136-145) 06/26/25 05:25 Potassium 3.5 mmol/L (3.5-5.1) 06/26/25 05:25 Chloride 113 mmol/L (98-107) H 06/26/25 05:25 Carbon Dioxide 17 mmol/L (21-32) L 06/26/25 05:25 Anion Gap 10 (3-11) 06/26/25 05:25 BUN 16 mg/dl (6-23) 06/26/25 05:25 Creatinine 1.24 mg/dl (0.6-1.4) 06/26/25 05:25 Est Cr Clr Drug Dosing 59.9 ml/min 06/26/25 05:25 eGFR 62.94 06/26/25 05:25 BUN/Creatinine Ratio 12.9 (10-20) 06/26/25 05:25 Glucose 101 mg/dl (70-99(Fasting)) H 06/26/25 05:25 POC Glucose 115 mg/dl (70-99) H 06/26/25 12:09 Estimat Average Glucose 131 mg/dl 06/21/25 01:57 Hemoglobin A1c 6.2 % (4.5-5.6) H 06/21/25 01:57 Calcium 8.4 mg/dl (8.6-10.3) L 06/26/25 05:25 Phosphorus 3.0 mg/dl (2.5-4.9) 06/25/25 05:27 Magnesium 2.1 mg/dl (1.7-2.4) 06/26/25 05:25 Total Bilirubin 0.8 mg/dl (0.2-1.0) 06/26/25 05:25 AST 36 U/L (13-39) 06/26/25 05:25 ALT 32 U/L (7-52) 06/26/25 05:25 Alkaline Phosphatase 76 U/L (34-104) 06/26/25 05:25 Troponin I High Sens 1752.9 pg/ml (0-20) H* D 06/26/25 05:25 Total Protein 5.7 gm/dl (6.0-8.3) L 06/26/25 05:25 Albumin 3.6 gm/dl (3.4-5.0) 06/26/25 05:25 Globulin 2.1 gm/dl (2.5-4.0) L 06/26/25 05:25 Albumin/Globulin Ratio 1.7 (0.9-2) 06/26/25 05:25 Triglycerides 65 mg/dl (0-150) 06/21/25 01:57 Cholesterol 94 mg/dl (0-200) 06/21/25 01:57 LDL Cholesterol, Calc 52 mg/dl 06/21/25 01:57 VLDL Cholesterol, Calc 13 mg/dl (0-30) 06/21/25 01:57 HDL Cholesterol 29 mg/dl 06/21/25 01:57 Cholesterol/HDL Ratio 3.2 (0-5) 06/21/25 01:57 Stl C. diff Tox B Gene Positive Cdiff Gene (Neg) A 06/25/25 02:29 Stl C.difficile Tox A&B Negative Cdiff Toxin (Negative) 06/25/25 02:29 Stl C. diff 027-NAP1-BI NEGATIVE 06/25/25 02:29 Impressions Chest X-Ray 06/20/25 17:25 Single frontal view of the chest No comparison Impression No acute pulmonary pathology Electronically signed by Jaime Deras 06-20-2025 7:42 PM Diagnostic Findings Cardiac Enzymes 06/25/25 06/25/25 06/26/25 Range/Units 19:04 22:48 05:25 AST 36 (13-39) U/L Troponin I High Sens 1140.4 H* 1446.7 H* D 1752.9 H* D (0-20) pg/ml CBC 06/26/25 Range/Units 09:23 WBC 9.71 (4.8-10.8) K/ul RBC 4.06 L (4.70-6.10) M/uL Hgb 12.4 L (14.0-18.0) g/dL Hct 36.2 L (42.0-52.0) % Plt Count 138 (130-400) K/uL Neut # (Auto) 6.75 H (1.40-6.50) K/uL Lymph # (Auto) 1.65 (1.20-3.40) K/uL [place] # (Auto) 0.91 H (0.11-0.59) K/uL Eos # (Auto) 0.32 (0.00-0.50) K/uL Baso # (Auto) 0.05 (0.00-0.20) K/uL Comprehensive Metabolic Panel 06/26/25 Range/Units 05:25 Sodium 140 (136-145) mmol/L Potassium 3.5 (3.5-5.1) mmol/L Chloride 113 H (98-107) mmol/L Carbon Dioxide 17 L (21-32) mmol/L BUN 16 (6-23) mg/dl Creatinine 1.24 (0.6-1.4) mg/dl Glucose 101 H (70-99(Fasting)) mg/dl Calcium 8.4 L (8.6-10.3) mg/dl AST 36 (13-39) U/L ALT 32 (7-52) U/L Alkaline Phosphatase 76 (34-104) U/L Total Protein 5.7 L (6.0-8.3) gm/dl Albumin 3.6 (3.4-5.0) gm/dl Intake and Output 06/26/25 06/26/25 06/26/25 06:59 14:59 22:59 Intake Total 1272 / 2324.000 1008.667 / 1008.667 Output Total 101 / 401 Balance 1171 / 4698.834 4012.667 / 1008.667 Intake: IV 1000 / 1392.000 558.667 / 558.667 Sodium Chloride 0.9% 1,000 ml @ 1000 / 1392.000 558.667 / 558.667 80 mls/hr IV .[id number] [facility] Rx#: [id number] Oral 272 / 932 450 / 450 Output: Urine 100 / 400 # Bowel Movements Other: # Unmeasured Voids 1 Weight 80.9 kg Weight Measurement Method Standing Scale Medications Administered Home Medications Medication Instructions Recorded Confirmed Last Taken alprazolam 0.25 mg tablet (Xanax) 0.25 mg PO TID PRN Anxiety 06/20/25 06/20/25 Unknown atorvastatin 40 mg tablet 20 mg PO DAILY 06/20/25 06/20/25 Unknown cetirizine 10 mg tablet 10 mg PO DAILY 06/20/25 06/20/25 Unknown magnesium oxide 420 mg tablet 420 mg PO DAILY 06/20/25 06/20/25 Unknown propranolol 120 mg capsule,24 120 mg PO DAILY 06/20/25 06/20/25 Unknown hr,extended release tamsulosin 0.4 mg capsule 0.4 mg PO DAILY 06/20/25 06/20/25 Unknown topiramate 50 mg tablet 50 mg PO BID Headache 06/20/25 06/21/25 Unknown venlafaxine 150 mg 300 mg PO DAILY 06/20/25 06/21/25 Unknown capsule,extended release 24 hr empagliflozin 25 mg tablet 12.5 mg PO DAILY 06/21/25 06/21/25 Unknown fluticasone propionate 50 2 spray intranasal DAILY 06/21/25 06/21/25 Unknown mcg/actuation nasal spray,suspension losartan 50 mg tablet 50 mg PO DAILY 06/21/25 06/21/25 Unknown pantoprazole 40 mg tablet,delayed 40 mg PO DAILY 06/21/25 06/21/25 Unknown release atorvastatin 40 mg tablet 80 mg (2 x 40 mg) PO QAM #90 tabs 06/25/25 Unknown ticagrelor 90 mg tablet (Brilinta) 90 mg PO BID #180 tabs 06/25/25 Unknown Active Medications Generic Name Dose Route Start Last Admin Trade Name Freq PRN Reason Stop Dose Admin Acetaminophen 650 mg 06/20/25 22:21 06/23/25 11:31 Acetaminophen 325 Mg Tab PO 07/20/25 22:20 650 mg Q4H PRN Administration Pain or Fever Alprazolam 0.25 mg 06/26/25 12:06 06/26/25 13:07 Alprazolam 0.25 Mg Tablet PO 07/20/25 23:33 0.25 mg QID PRN Administration Anxiety Aspirin 81 mg 06/21/25 09:00 06/26/25 09:16 Aspirin 81 Mg Ectab PO 07/21/25 08:59 81 mg QAM JONEL Administration Atorvastatin Calcium 80 mg 06/20/25 19:00 06/26/25 09:15 Atorvastatin 40 Mg Tab PO 07/20/25 18:59 80 mg QAM JONEL Administration Cetirizine HCl 10 mg 06/21/25 09:00 06/26/25 09:17 Cetirizine Hcl 10 Mg Tablet PO 07/21/25 08:59 10 mg DAILY JONEL Administration Insulin Aspart 0 units 06/25/25 21:00 06/26/25 12:14 Insulin Aspart Per Unit Charge SC 07/25/25 20:59 Not Given ACHS JONEL Losartan Potassium 50 mg 06/22/25 09:00 06/26/25 09:17 Losartan Potassium 50 Mg Tab PO 07/22/25 08:59 50 mg QAM JONEL Administration Magnesium Oxide 400 mg 06/23/25 21:00 06/25/25 20:39 Magnesium Oxide 400 Mg Tab PO 07/23/25 20:59 400 mg HS JONEL Administration Nitroglycerin 0.4 mg 06/20/25 22:21 06/25/25 01:54 Nitroglycerin Sl 0.4 Mg/Tab Tab SL 07/20/25 22:20 0.4 mg Q5M PRN Administration Chest Pain Pantoprazole Sodium 40 mg 06/22/25 09:00 06/26/25 09:16 Pantoprazole 40 Mg Tab PO 07/22/25 08:59 40 mg QAM JONEL Administration Propranolol HCl 120 mg 06/21/25 09:00 06/26/25 09:16 Propranolol Hcl 60 Mg [place] PO 07/21/25 08:59 120 mg DAILY JONEL Administration Sodium Chloride 1 sprays 06/26/25 12:50 06/26/25 13:55 Sodium Chloride 0.65% Na Soln 45 Ml ([place]) NA 07/26/25 12:49 1 sprays Q4 PRN Administration Congestion Tamsulosin HCl 0.4 mg 06/21/25 09:00 06/26/25 09:16 Tamsulosin Hcl 0.4 Mg Cap PO 07/21/25 08:59 0.4 mg DAILY JONEL Administration Ticagrelor 90 mg 06/23/25 21:00 06/26/25 09:17 Ticagrelor 90 Mg Tab PO 07/23/25 20:59 90 mg BID JONEL Administration Topiramate 50 mg 06/21/25 21:00 06/26/25 09:15 Topiramate 50 Mg Tab PO 07/21/25 20:59 50 mg BID JONEL Administration Vancomycin HCl 125 mg 06/25/25 12:00 06/26/25 13:07 Vancomycin Hcl 125 Mg Cap PO 07/05/25 11:59 125 mg Q6 JONEL Administration Venlafaxine HCl 300 mg 06/22/25 09:00 06/26/25 09:17 Venlafaxine Hcl Xr 150 Mg Capxr PO 07/22/25 08:59 300 mg DAILY JONEL Administration PG Care Time/CCT Total # of Minutes Spent Total Time Spent with Patient: Total time spent is greater than 50% in coordination of care (as documented) at patient's floor/unit and/or counseling patient: Coding Level of Care Code 46474 SUB INP/OBS CARE 350MIN Diagnoses Acute non-ST elevation myocardial infarction (NSTEMI) I21.4 Chest pain R07.9 Hypertension I10 Dyslipidemia E78.5
[2025-06-26 17:41] VITALS: RESP 18
[2025-06-27] MEDS ORDERED: VANCOMYCIN HCL 125 MG CAP PO SCH
[2025-06-27 05:48] VITALS: O2SAT 98
[2025-06-27 08:48] VITALS: TEMP 97.5
--- NOTE | 2025-06-27 09:28 | Cardiology Progress Note ---
Date of Service June 27, 2025 Assessment & Plan (1) Acute non-ST elevation myocardial infarction (NSTEMI): (2) Chest pain: (3) Hypertension: (4) Dyslipidemia: Plan Assessment: 69 year old male with PMHx significant for HTN, HLD and family history of premature CAD that presented to the ER with complaints of chest pain radiating to bilateral arms and back for several hours. Little to no relief with ASA, current anti-hypertensives and Pepto-bismol. EKG with no acute ST e levation, but T wave inversion in inferior leads. Troponin with modest elevation, peaked and then trend down. Cardiology consulted for further evaluation. CAD s/p LANG of mid RCA S/P staged PCI of LAD NSTEMI HTN Dyslipidemia Renal Insufficiency - improved Recommendations: correct and f/u electrolytes f/u renal function continue DAPT continue Lipitor continue propranolol continue Losartan salt restriction counseling stable from cardiac standpoint f/u with cardiology post discharge Admission and Anticipated Discharge Date Admission Date: June 20, 2025 Supervising Physician Co-Signing Physician Notes Subjective Patient on exam is lying in bed in NAD; no c/o cp, sob, palpitations, dizziness, LOC, cough, fever, nausea, vomiting, abdominal pain, urinary or bowel problem problems s/p PCI of RCA and staged PCI of LAD patient with no more sob after being give Brilinta as per planer setup operator of Systems Review of Systems: as per hpi Physical Exam Constitutional: well developed; no acute distress Eyes: anicteric sclerae, pink conjunctiva Neck: normal visual inspection and trachea midline Respiratory: normal respiratory effort, lungs clear to auscultation Cardiovascular: RRR, no murmur, no edema Heart Sounds: normal S1 and normal S2 Vessels: dorsalis pedis pulses present and radial pulses present; no JVD Extremities: no edema Gastrointestinal (Abdomen): soft, NT, BS+ Skin: no rashes, warm and dry Psychiatric: A+Ox3, euthymic affect Results & Data Vital Signs (Past 12 Hours) Vital Signs Temp Pulse Pulse Pulse Resp BP Pulse Ox 06/27/25 07:14 36.4 C L 52 L 18 137/73 98 06/27/25 04:10 36.5 C 47 L 18 137/77 98 06/26/25 23:09 36.5 C 54 L 18 140/67 96 06/26/25 22:44 55 L O2 Del Method 06/27/25 07:14 Room Air 06/27/25 04:10 Room Air 06/26/25 23:09 Room Air 06/26/25 22:44 Laboratory Results Laboratory Results WBC 9.71 K/ul (4.8-10.8) 06/26/25 09:23 RBC 4.06 M/uL (4.70-6.10) L 06/26/25 09:23 Hgb 12.4 g/dL (14.0-18.0) L 06/26/25 09:23 Hct 36.2 % (42.0-52.0) L 06/26/25 09:23 MCV 89.2 fL (80.0-100.0) 06/26/25 09:23 MCH 30.5 pg (25.0-34.0) 06/26/25 09:23 MCHC 34.3 g/dL (32.0-36.0) 06/26/25 09:23 RDW Std Deviation 46.0 fL (36.4-46.3) 06/26/25 09:23 RDW Coeff of Misha 14.2 % (11.5-14.5) 06/26/25 09:23 Plt Count 138 K/uL (130-400) 06/26/25 09:23 MPV 9.7 fL (9.4-12.4) 06/26/25 09:23 Immature Gran % (Auto) 0.3 % 06/26/25 09:23 Neut % (Auto) 69.5 % 06/26/25 09:23 Lymph % (Auto) 17.0 % 06/26/25 09:23 [place] % (Auto) 9.4 % 06/26/25 09:23 Eos % (Auto) 3.3 % 06/26/25 09:23 Baso % (Auto) 0.5 % 06/26/25 09:23 Neut # (Auto) 6.75 K/uL (1.40-6.50) H 06/26/25 09:23 Lymph # (Auto) 1.65 K/uL (1.20-3.40) 06/26/25 09:23 [place] # (Auto) 0.91 K/uL (0.11-0.59) H 06/26/25 09:23 Eos # (Auto) 0.32 K/uL (0.00-0.50) 06/26/25 09:23 Baso # (Auto) 0.05 K/uL (0.00-0.20) 06/26/25 09:23 Immature Gran # (Auto) 0.03 K/uL (0.01-0.20) 06/26/25 09:23 PT 10.5 Seconds (9.0-12.0) 06/20/25 17:33 INR 1.0 (0.9-1.1) 06/20/25 17:33 APTT 30 Seconds (21-31) 06/20/25 17:33 PTT Ratio 1.1 06/20/25 17:33 Activ Coag Time Kaolin 307 SECONDS (94-140) H 06/23/25 10:03 D-Dimer 300 ug/L FEU (0-500) 06/21/25 16:41 Heparin Anti-Xa, Unfract < 0.10 IU/ml (0.3-0.7) L 06/24/25 05:31 VBG pH 7.30 (7.36-7.41) L 06/27/25 10:13 VBG pCO2 48 mmHg (38-50) 06/27/25 10:13 VBG pO2 < 20 mmHg 06/27/25 10:13 VBG HCO3 24 mmol/L 06/27/25 10:13 VBG O2 Saturation < 60.0 % 06/27/25 10:13 VBG Base Excess -3.2 mEq/L 06/27/25 10:13 Sodium 141 mmol/L (136-145) 06/27/25 10:13 Potassium 3.5 mmol/L (3.5-5.1) 06/27/25 10:13 Chloride 111 mmol/L (98-107) H 06/27/25 10:13 Carbon Dioxide 24 mmol/L (21-32) 06/27/25 10:13 Anion Gap 6 (3-11) 06/27/25 10:13 BUN 15 mg/dl (6-23) 06/27/25 10:13 Creatinine 1.46 mg/dl (0.6-1.4) H 06/27/25 10:13 Est Cr Clr Drug Dosing 50.9 ml/min 06/27/25 10:13 eGFR 51.74 06/27/25 10:13 BUN/Creatinine Ratio 10.3 (10-20) 06/27/25 10:13 Glucose 156 mg/dl (70-99(Fasting)) H 06/27/25 10:13 POC Glucose 123 mg/dl (70-99) H 06/27/25 08:09 Estimat Average Glucose 131 mg/dl 06/21/25 01:57 Hemoglobin A1c 6.2 % (4.5-5.6) H 06/21/25 01:57 Calcium 8.9 mg/dl (8.6-10.3) 06/27/25 10:13 Phosphorus 3.0 mg/dl (2.5-4.9) 06/25/25 05:27 Magnesium 2.1 mg/dl (1.7-2.4) 06/26/25 05:25 Total Bilirubin 0.8 mg/dl (0.2-1.0) 06/26/25 05:25 AST 36 U/L (13-39) 06/26/25 05:25 ALT 32 U/L (7-52) 06/26/25 05:25 Alkaline Phosphatase 76 U/L (34-104) 06/26/25 05:25 Troponin I High Sens 1752.9 pg/ml (0-20) H* D 06/26/25 05:25 Total Protein 5.7 gm/dl (6.0-8.3) L 06/26/25 05:25 Albumin 3.6 gm/dl (3.4-5.0) 06/26/25 05:25 Globulin 2.1 gm/dl (2.5-4.0) L 06/26/25 05:25 Albumin/Globulin Ratio 1.7 (0.9-2) 06/26/25 05:25 Triglycerides 65 mg/dl (0-150) 06/21/25 01:57 Cholesterol 94 mg/dl (0-200) 06/21/25 01:57 LDL Cholesterol, Calc 52 mg/dl 06/21/25 01:57 VLDL Cholesterol, Calc 13 mg/dl (0-30) 06/21/25 01:57 HDL Cholesterol 29 mg/dl 06/21/25 01:57 Cholesterol/HDL Ratio 3.2 (0-5) 06/21/25 01:57 Stl C. diff Tox B Gene Positive Cdiff Gene (Neg) A 06/25/25 02:29 Stl C.difficile Tox A&B Negative Cdiff Toxin (Negative) 06/25/25 02:29 Stl C. diff 027-NAP1-BI NEGATIVE 06/25/25 02:29 Impressions Chest X-Ray 06/20/25 17:25 Single frontal view of the chest No comparison Impression No acute pulmonary pathology Electronically signed by Jaime Deras 06-20-2025 7:42 PM Diagnostic Findings Comprehensive Metabolic Panel 06/27/25 Range/Units 10:13 Sodium 141 (136-145) mmol/L Potassium 3.5 (3.5-5.1) mmol/L Chloride 111 H (98-107) mmol/L Carbon Dioxide 24 (21-32) mmol/L BUN 15 (6-23) mg/dl Creatinine 1.46 H (0.6-1.4) mg/dl Glucose 156 H (70-99(Fasting)) mg/dl Calcium 8.9 (8.6-10.3) mg/dl Intake and Output 06/26/25 06/27/25 06/27/25 22:59 06:59 14:59 Intake Total 120 / 1328.667 200 / 1328.667 Output Total Balance 119 / 1327.667 200 / 1327.667 Intake: Oral 120 / 770 200 / 770 Output: # Bowel Movements Other: # Unmeasured Voids 1 1 Weight 81.6 kg 81.6 kg Weight Measurement Method Built in [facility] Patient Weight 06/28/25 06:59 Weight 81.6 kg Medications Administered Home Medications Medication Instructions Recorded Confirmed Last Taken alprazolam 0.25 mg tablet (Xanax) 0.25 mg PO TID PRN Anxiety 06/20/25 06/20/25 Unknown cetirizine 10 mg tablet 10 mg PO DAILY 06/20/25 06/20/25 Unknown magnesium oxide 420 mg tablet 420 mg PO DAILY 06/20/25 06/20/25 Unknown propranolol 120 mg capsule,24 120 mg PO DAILY 06/20/25 06/20/25 Unknown hr,extended release tamsulosin 0.4 mg capsule 0.4 mg PO DAILY 06/20/25 06/20/25 Unknown topiramate 50 mg tablet 50 mg PO BID Headache 06/20/25 06/21/25 Unknown venlafaxine 150 mg 300 mg PO DAILY 06/20/25 06/21/25 Unknown capsule,extended release 24 hr empagliflozin 25 mg tablet 12.5 mg PO DAILY 06/21/25 06/21/25 Unknown fluticasone propionate 50 2 spray intranasal DAILY 06/21/25 06/21/25 Unknown mcg/actuation nasal spray,suspension losartan 50 mg tablet 50 mg PO DAILY 06/21/25 06/21/25 Unknown pantoprazole 40 mg tablet,delayed 40 mg PO DAILY 06/21/25 06/21/25 Unknown release atorvastatin 40 mg tablet 80 mg (2 x 40 mg) PO QAM #90 tabs 06/25/25 Unknown ticagrelor 90 mg tablet (Brilinta) 90 mg PO BID #180 tabs 06/25/25 Unknown aspirin 81 mg tablet,delayed 81 mg PO QAM 30 days #30 tabs 06/27/25 Unknown release vancomycin 125 mg capsule 125 mg PO Q6 8 days #32 caps 06/27/25 Unknown PG Care Time/CCT Total # of Minutes Spent Total Time Spent with Patient: Total time spent is greater than 50% in coordination of care (as documented) at patient's floor/unit and/or counseling patient: Coding Level of Care Code 11853 SUB INP/OBS CARE 3/50MIN Diagnoses Acute non-ST elevation myocardial infarction (NSTEMI) I21.4 Chest pain R07.9 Hypertension I10 Dyslipidemia E78.5
--- NOTE | 2025-06-27 09:36 | Discharge Summary ---
Discharge Summary Date of Service June 27, 2025 delayed entry date of service noted above Principal Dx & Hospital Course #1 = Principal Diagnosis (1) Acute non-ST elevation myocardial infarction (NSTEMI): 69-year-old man who goes to [facility] with past medical history significant for hypertension, hyperlipidemia, BPH, chronic headaches, depression and anxiety and ongoing tobacco abuse presents with chest pain started a few nights ago radiating to both arms initially and later the pain was located in the middle of the chest which lasted for about 20 minutes and elevated BP. Non-ST elevated NH Severe Multivessel Coronary Artery Disease s/p Cardiac Cath with PCI x 2 EKG noted TWI in III Initial troponin 339->>>415->360->>>456->438 Got aspirin and started on IV heparin in the ER TTE noted EF 55-60%, mild hypokinesis of basal inferoseptal wall and inferior wall, mild MR Was initially on hep gtt, now off after cath S/p Cardiac cath on 06/23/25 Patient has severe multivessel CAD. Severe LAD stenosis and RCA stenosis with the RCA being the culprit lesion Got complex PCI of RCA with 4 overlapping LANG Planned for staged PCI of LAD tomorrow Continue ASA 81mg and brilinta Continue atorvastatin 06/25 s/p Successful staged PCI of the LAD using 2 overlapped drug-eluting stents by Dr. Rosario recommendations: Continue dual antiplatelet therapy with aspirin and Brilinta for 1 to 2 years. Consider indefinite treatment given the extent of stenting. Guideline directed medical therapy for secondary prevention of coronary artery disease as per primary cardiology team. Recent RCA stenting remains widely patent. Current angiography demonstrates small gap between the most distal stent and the distal edge of the stent train. 06/26 chest pain free BP ok, HR in the 50s continue Aspirin, Brillinta, Propranolol emphasized with patient the need to strictly taking medications daily to prevent stent occlusion, patient verbalized understanding and agreement Diarrhea C diff gene positive, toxin negative Vanco PO started due to profuse diarrhea - diarrhea resolved complete course of vancomycin PO, total 10 days History of hypertension On propranolol Continue losartan continue to monitor closely Hyperlipidemia Atorvastatin was increased to 80 mg daily on admission BPH On Flomax Depression/anxiety Continue current psych meds Denied SI/HI Patient discussed with psych liason Possible Chronic kidney disease Patient does not know his baseline creatinine Cr of 1.59 on admission Cr is 1.37 today--> 1.5 repeat BMP--> 1.2 DM Recently started on Jardiance as per patient HbA1c 6.2 ISS for now Chronic back pain DVT prophylaxis -SCDs Full code. Disposition dc home PCP ff up in 1 week Notes For Next Care Provider Medication Changes From Visit as per med rec Admission HPI Per Admitting Provider 69-year-old male unassigned patient who goes to [facility] with past medical history significant for hypertension, hyperlipidemia, BPH, chronic headaches, depression and anxiety and ongoing tobacco abuse presents with chest pain. Couple of nights ago patient experienced chest tightness radiating to both arms initially and later the pain was located in the middle of the chest which lasted for about 20 minutes. When he checked his blood pressure was very high at that time. He took aspirin and took his blood pressure medication and also took a lot of Pepto-Bismol. Pain subsided over 20 minutes. Since then he did not had any more pains. The day before chest pain he felt some pain in his back with stiffness. When he climbs steps he feels short of breath. Says he has chronic headaches. During the episode no profuse sweating. He felt dizzy during the episode. No nausea. Has chronic cough from smoking. Chronic sinus drainage. Has chronic left ear discomfort. Chronic abdominal discomfort. He has alternating diarrhea and constipation. Last couple of days having black stools probably from his Pepto-Bismol. Micturating okay. Denies any rash. Currently no chest pain. Currently resting comfortably and hemodynamically stable.States cannot ambulate much because of chronic back pain radiating down his left leg Past medical history. As mentioned above. Past surgical history. Dental surgery. Tonsillectomy. Social history. Smokes 1 pack of cigarettes daily for last 50 years. Quit drinking alcohol in 1988. Family history. Patient states he is adopted. His father in his 30s. No other significant history in the family as per patient. Admission Exam Per Admitting Provider General- Not in acute distress Head- atraumatic Eyes- PERRL. ENT- oropharynx clear Neck- supple, no JVD. Lungs- clear to auscultation no wheezing or crackles Heart- regular rhythm; no murmur, no gallop. Abdomen- normal bowel sounds, soft, nontender, no distension. Extremities- no pretibial edema, no erythema seen Neuro- alert, oriented x 3; PERRL, no facial palsy; no dysarthria; moves extremities Discharge Exam General- oriented x 3, not in distress, speaks in sentences with no effort or accessory muscle use Eyes- anicteric Neck- no JVD Lungs- clear breath sounds bilaterally, no rales/wheezes Heart- normal rate, regular rhythm; no murmurs Abdomen- normal bowel sounds, nondistended, soft, nontender Extremities- no pretibial edema, no calf tenderness Neuro- alert, oriented x 3; no gross focal neurologic deficits Skin- warm & dry Updated Medication List Medication Instructions Recorded Confirmed Type alprazolam 0.25 mg tablet (Xanax) 0.25 mg PO TID PRN Anxiety 06/20/25 06/20/25 History cetirizine 10 mg tablet 10 mg PO DAILY 06/20/25 06/20/25 History magnesium oxide 420 mg tablet 420 mg PO DAILY 06/20/25 06/20/25 History propranolol 120 mg capsule,24 120 mg PO DAILY 06/20/25 06/20/25 History hr,extended release tamsulosin 0.4 mg capsule 0.4 mg PO DAILY 06/20/25 06/20/25 History topiramate 50 mg tablet 50 mg PO BID Headache 06/20/25 06/21/25 History venlafaxine 150 mg 300 mg PO DAILY 06/20/25 06/21/25 History capsule,extended release 24 hr empagliflozin 25 mg tablet 12.5 mg PO DAILY 06/21/25 06/21/25 History fluticasone propionate 50 2 spray intranasal DAILY 06/21/25 06/21/25 History mcg/actuation nasal spray,suspension losartan 50 mg tablet 50 mg PO DAILY 06/21/25 06/21/25 History pantoprazole 40 mg tablet,delayed 40 mg PO DAILY 06/21/25 06/21/25 History release atorvastatin 40 mg tablet 80 mg (2 x 40 mg) PO QAM #90 tabs 06/25/25 Rx ticagrelor 90 mg tablet (Brilinta) 90 mg PO BID #180 tabs 06/25/25 Rx aspirin 81 mg tablet,delayed 81 mg PO QAM 30 days #30 tabs 06/27/25 Rx release vancomycin 125 mg capsule 125 mg PO Q6 8 days #32 caps 06/27/25 Rx Hospital Stay Data Consultations 06/20/25 19:27 ED Decision to Admit Stat 06/21/25 08:00 Consult Cardiology Routine 06/21/25 13:00 Consult Behavioral Health Liaison Routine 06/23/25 10:36 Consult Cardiac Rehabilitation Routine 06/25/25 09:39 Consult Cardiac Rehabilitation Routine Procedures Performed Operation Date: 06/25/25 08:00 Actual Procedures s Cineradiography w/Routine Exam - Luis Rosario MD, PhD p Drug Eluting Stent SGl Vessel - Luis Rosario MD, PhD p Cath, Coronaries ONLY (no LV) - Luis Rosario MD, PhD Diagnostic Imagining Performed 06/23/25 06:58 CL Cath Imgs for PACS use only Routine 06/25/25 06:37 CL Cath Imgs for PACS use only Routine Pending Results Patient Have Any Pending Studies at Discharge: No Discharge Instructions Given to Patient (Per Discharging Provider) PLEASE REFER TO YOUR NEW MEDICATION LIST AND FOLLOW INSTRUCTIONS CAREFULLY. YOU NEED TO TAKE ASPIRIN AND BRILINTA EVERY DAY FOR AT LEAST 1 YEAR TO PREVENT STENT BLOCKAGE. PLEASE CALL YOUR PRIMARY CARE PHYSICIAN OR RETURN TO THE ER IF WITH WORSENING OF SYMPTOMS, INCLUDING chest pain, shortness of breath, dizziness, palpitations, etc. FOLLOW UP WITH PRIMARY CARE PHYSICIAN OUTLINED ABOVE. ACTIVITY RECOMMENDATIONS: It is common to feel weak and fatigue for a few days. * Do not drive or operate any motorized equipment for the next three days. * Limit stair usage (2 or 3 trips a day only) for the next three days. * Do not lift anything heavier than 10 pounds for the next three days. * Do not engage in vigorous exercise or any sports for the next five days. * You may shower the day after your procedure, but do not immerse the area for three days. Cleanse the site gently with soap and water. SPECIAL CARE INSTRUCTIONS: * You may replace the pressure dressing or band-aid the morning after the procedure. * After your procedure, it is normal to have a small bruise or small lump at the site. Examine your site daily for any change in the bruise or lump, redness, swelling, drainage or numbness. Notify your doctor if any change. BLEEDING: * If there is a small amount of bleeding at the site, lie down and apply firm pressure with a clean cloth for ten minutes. When the bleeding stops, lie quietly keeping the procedure limb straight for six hours. Notify your doctor as soon as possible. * If the bleeding does not stop after ten minutes or if there is a large amount of bleeding or spurting, call 911 immediately. Continue to lie down and hold firm pressure until help arrives. SKIN IRRITATION: * You may experience some redness and/or swelling in the area where radiation was administered. If any skin irritation occurs, please contact your family physician. FOLLOW UP VISIT: Keep any scheduled doctor appointments. Total Time Total Time Spent Total Time Spent (In Minutes): 45 minutes
[2025-06-27 10:20] VITALS: BP 123/76; PULSE 47
[2025-06-27 10:25] LABS: Base Excess VBG -3.2 mEq/L; HCO3 VBG 24 mmol/L; Oxygen Saturation VBG < 60.0 %; PCO2 VBG 48 mmHg (38-50); PO2 VBG < 20 mmHg; pH VBG 7.30 (7.36-7.41)
[2025-06-27 10:51] LABS: Anion Gap 6.0 (3-11); Blood Urea Nitrogen 15.0 mg/dl (6-23); Calcium 8.9 mg/dl (8.6-10.3); Carbon Dioxide 24.0 mmol/L (21-32); Chloride 111.0 mmol/L (98-107); Creatinine Clr Calc Pharmacy 50.9 ml/min; Glucose 156.0 mg/dl (70-99(Fasting)); Potassium 3.5 mmol/L (3.5-5.1); Sodium 141.0 mmol/L (136-145)
== END 2025-06-27 12:10 | disposition home or self-care (01) | DRG 321 ==
LOC: ED 17:14 → SUATTDRO 20:35 → 4W 20:35
PROC: CLB.CCO (2025-06-23 09:30)